=== PATIENT | male | born 1950 | race Caucasian/White ===

== ENCOUNTER 2016-04-18 14:19 | Emergency (ER) ==
[2016-04-18 14:25] VITALS: BP 151/81; TEMP 98.4; BMI 28.6
[2016-04-18] MEDS ORDERED: DECADRON 4 MG/ML SDV IM STA (14:31)
[2016-04-18] MEDS ORDERED: TORADOL IM STA (14:32)
--- NOTE | 2016-04-18 14:53 | DI ---
EXAM: Right foot; PA, lateral, and oblique views HISTORY: Foot pain COMPARISON: Ankle radiographs from same day. FINDINGS: There is no acute fracture or dislocation. Joint spaces and alignment is maintained. Smal l osteophytes project at the region of the first tarsometatarsal joint. Small plantar enthesiophyte is present. Vascular calcifications are noted. Soft tissues are unremarkable. OPINION: No acute osseous abnormality of the foot. 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 Small Achilles enthesiophyte. Atherosclerosis.
--- NOTE | 2016-04-18 14:54 | DI ---
EXAM: Right ankle; AP, lateral, and oblique views HISTORY: Ankle pain COMPARISON: Foot radiograph from same day. FINDINGS: A small well corticated ossicle is present inferior to the lateral malleolus. No evidence of fracture or dislocation is seen. The ankle mortise is congruent. The talar dome has a normal c ontour. No significant soft tissue swelling is present. A small plantar enthesiophyte is present. Vascular calcifications are noted. IMPRESSION: No acute osseous abnormality of the ankle. Well corticated ossicle inferior to the lateral malleolus. Small plantar enthesiophyte. Atherosclerosis.
--- NOTE | 2016-04-18 16:26 | ED.PDOC ---
General ED Provider: Dr. SHEN MCCONNELL Chief Complaint: Foot Pain/Injury Stated Complaint: left foot and ankle injury Time Seen by Physician: 14:20 Mode of Arrival: Walk-In Information Source: Patient Exam Limitations: No limitations Primary Care Provider: GREGORIA THACKER Nursing and Triage Documentation Reviewed and Agree: Yes Musculoskeletal Complaint Exam - Ankle/Foot Complaint/Exam Location of Injury: Reports: Right, Ankle, Foot Mechanism of Injury: Reports: Trauma Onset/Duration: 1 day Symptoms Are: Reports: Still present Onset of Pain: Reports: Immediate Initial Severity: Moderate Current Severity: Moderate Location: Reports: Discrete Character: Reports: Aching, Spasmodic, Stiffness Alleviating: Reports: Rest Aggravating: Reports: Movement Able to Bear Weight: Yes Associated Signs and Symptoms: Denies: Swelling, Redness, Bruising, Fever, Weakness, Numbness, Tingling Gout Risk Factors: Reports: >40 years old Related Surgical History: Reports: None Achilles Tendon Abnormality: No Tenderness: Present: Medial malleolus, Lateral malleolus Differential Diagnosis: Closed Fracture, Gout Review of Systems - Review Of Systems Constitutional: Reports: No symptoms Eyes: Reports: No symptoms Ears, Nose, Mouth, Throat: Reports: No symptoms Respiratory: Reports: No symptoms Cardiac: Reports: No symptoms GI: Reports: No symptoms : Reports: No symptoms Musculoskeletal: Reports: Joint pain Skin: Reports: No symptoms Neurological: Reports: No symptoms Endocrine: Reports: No symptoms Hematologic/Lymphatic: Reports: No symptoms All Other Systems: Reviewed and Negative Past Medical History - Past Medical History Endocrine: Reports: DM 2, Dyslipidemia Cardiovascular: Reports: [place] Respiratory: Reports: Pneumonia, Other (asbestosis) Hematological: Reports: None Gastrointestinal: Reports: GERD Genitourinary: Reports: None Neuro/Psych: Reports: Migraine Musculoskeletal: Reports: None Cancer: Reports: None Other Pertinent Past Medical History: asbestosis - Surgical History General 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 ) - Family History Family History: Reports: Unknown - Social History Smoking Status: Former smoker Hx Substance Use: No Alcohol Screening: Occasionally Physical Exam - Physical Exam Appearance: Well-appearing, No pain distress, Well-nourished Eyes: FERNANDO, EOMI, Conjunctiva clear ENT: Ears normal, Nose normal, Oropharynx normal Respiratory: Airway patent, Breath sounds clear, Breath sounds equal, Respirations nonlabored Cardiovascular: RRR, Pulses normal, No rub, No murmur GI/: Soft, Nontender, No masses, Bowel sounds normal, No Organomegaly Musculoskeletal: Normal strength, ROM intact, No edema, No calf tenderness Skin: Warm, Dry, Normal color Neurological: Sensation intact, Motor intact, Reflexes intact, Cranial nerves intact, Alert, Oriented Psychiatric: Affect appropriate, Mood appropriate Interpretation - Radiology Interpretation Radiology Interpretation By: Radiologist Radiology Results: No acute changes Critical Care Note - Critical Care Note Total Time (mins): 0 Course - Course Orders, Labs, Meds: Lab Review 04/18/16 14:40 Uric Acid 6.4 Orders Category Date Time Status URIC ACID Stat LAB 04/18/16 14:40 Completed Dexamethasone 4 mg/ml Inj [Decadron 4 mg/ml Sdv] MEDS 04/18/16 14:31 Discontinued 8 mg IM ONCE STA Ketorolac Tromethamine [Toradol] MEDS 04/18/16 14:32 Discontinued 60 mg IM ONCE STA ANKLE, RIGHT MIN 3 VIEWS Stat RADS 04/18/16 14:31 Completed FOOT, RIGHT 3 VIEWS Stat RADS 04/18/16 14:31 Completed Medications Discontinued Medications Generic Name Dose Route Start Last Admin Trade Name Freq PRN Reason Stop Dose Admin Dexamethasone Sodium Phosphate 8 mg 04/18/16 14:31 04/18/16 15:09 Decadron 4 Mg/Ml Sdv IM 04/18/16 14:32 8 mg ONCE STA Administration Ketorolac Tromethamine 60 mg 04/18/16 14:32 04/18/16 15:09 Toradol IM 04/18/16 14:33 60 mg ONCE STA Administration Vital Signs: Temp Pulse Resp BP Pulse Ox 04/18/16 14:20 98.4 F 67 20 151/81 H 94 L Departure - Departure Time of Disposition: 16:27 Disposition: HOME SELF-CARE Discharge Problem: Foot pain, right Instructions: Gout (ED), Low Purine Diet (ED) Condition: Good Pt referred to PMD for follow-up: No Additional Instructions: Please call your Family Physician as soon as possible to schedule a follow-up appointment.MRI OF ANKLE SHOULD BE OBTAINED BY YOUR DOCTOR SOON POSSIBLE , THE FOOT WELL Allergies/Adverse Reactions: Allergies No Known Allergies Allergy (Verified 04/18/16 14:26) Home Medications: Ambulatory Orders Aspirin [Aspirin EC] 81 mg PO DAILYWM 05/07/13 Omeprazole [Prilosec] 20 mg PO QDAC 05/07/13 Pravastatin Sodium [Pravachol] 40 mg PO BEDTIME 05/07/13 Amlodipine Besylate 5 mg PO DAILY 07/04/14 Metformin HCl [Glucophage] 500 mg PO BIDWM #60 tablet 07/07/14 Insulin Detemir [Levemir] 10 unit SUBCUT BEDTIME 07/21/14 Disposition Discussed With: Patient
== END 2016-04-18 17:02 | disposition home or self-care (01) ==
LOC: ED 14:19
DX: M79.671 Pain in right foot (principal); M25.571 Pain in right ankle and joints of right foot
CPT/HCPCS: 36415; 84550; 96372; 99282

== ENCOUNTER 2016-04-20 15:54 | Emergency (ER) ==
[2016-04-20 15:55] VITALS: BMI 28.6
[2016-04-20 16:02] VITALS: BP 128/82; TEMP 98.2
[2016-04-20] MEDS ORDERED: ANTIVERT PO STA (16:15)
--- NOTE | 2016-04-20 16:20 | ED.PDOC ---
General ED Provider: Dr. LINDA WALKER JR Chief Complaint: Dizziness Stated Complaint: woke up with dizziness this am--states also had elevated blood sugar at 220 at 0700--has not felt well and has not eaten--blood sugar now down at 88--seen in er this past tuesday for pain rt foot with swelling[ End ]98.2 68 20 96% 128/82 03/23; right foot pain resolved now with red discolration medial and lateral foot purplish at most dependent nontender now able to walk without pain but discoloration preset normal xrays 2/5 now; not tender Time Seen by Physician: 16:16 Mode of Arrival: Walk-In Information Source: Patient Exam Limitations: No limitations Primary Care Provider: GREGORIA THACKER Nursing and Triage Documentation Reviewed and Agree: No Review of Systems - Review Of Systems Constitutional: Reports: Malaise, Weakness Eyes: Reports: No symptoms Ears, Nose, Mouth, Throat: Reports: No symptoms Respiratory: Reports: No symptoms Cardiac: Reports: No symptoms GI: Reports: No symptoms : Reports: No symptoms Musculoskeletal: Reports: No symptoms Skin: Reports: No symptoms Neurological: Reports: Other (dizzy) Endocrine: Reports: No symptoms Hematologic/Lymphatic: Reports: No symptoms All Other Systems: Other Past Medical History - Past Medical History Endocrine: Reports: DM 2, Dyslipidemia Cardiovascular: Reports: [place] Respiratory: Reports: Pneumonia, Other (asbestosis) Hematological: Reports: None Gastrointestinal: Reports: GERD Genitourinary: Reports: None Neuro/Psych: Reports: Migraine Musculoskeletal: Reports: None Cancer: Reports: None Other Pertinent Past Medical History: asbestosis - Surgical History General 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 ) - Family History Family History: Reports: Unknown - Social History Smoking Status: Former smoker Hx Substance Use: No Alcohol Screening: Occasionally Physical Exam - Physical Exam Appearance: Well-appearing Ill-appearing: Mild Pain Distress: Mild Eyes: FERNANDO, EOMI, Conjunctiva clear ENT: Ears normal, Nose normal, Oropharynx normal Neck: Supple Respiratory: Airway patent, Breath sounds clear, Breath sounds equal, Respirations nonlabored Cardiovascular: RRR, Pulses normal, No rub, No murmur GI/: Soft, Nontender, No masses, Bowel sounds normal, No Organomegaly Musculoskeletal: Normal strength, ROM intact, No edema, No calf tenderness Skin: Warm, Dry, Normal color Neurological: Sensation intact, Motor intact, Reflexes intact, Cranial nerves intact, Alert, Oriented Psychiatric: Affect appropriate, Mood appropriate Interpretation - Radiology Interpretation Radiology Interpretation By: Radiologist Radiology Results: Negative Exam Interpreted: CXR Critical Care Note - Critical Care Note Total Time (mins): 10 Course - Course Hematology/Chemistry: 04/20/16 16:30 04/20/16 16:30 Orders, Labs, Meds: Lab Review 04/20/16 16:30 WBC 8.63 RBC 4.58 L Hgb 14.3 Hct 40.4 L MCV 88.2 MCH 31.2 H MCHC 35.4 RDW Coeff of [place] 12.4 Plt Count 252 Immature Gran % (Auto) 0.5 Neut % (Auto) 71.7 Lymph % (Auto) 15.6 [place] % (Auto) 9.5 Eos % (Auto) 2.1 Baso % (Auto) 0.6 Immature Gran # (Auto) 0.0 Neut # 6.2 Lymph # 1.4 [place] # 0.8 Eos # 0.2 Baso # 0.1 D-Dimer 0.46 Sodium 138 Potassium 4.2 Chloride 107 Carbon Dioxide 22 L Anion Gap 13.2 BUN 17 Creatinine 1.05 Estimated GFR (MDRD) 70.00 BUN/Creatinine Ratio 16.19 Glucose 135 H Calcium 9.3 Total Bilirubin 1.83 H AST 23 ALT 20 Alkaline Phosphatase 57 Total Creatine Kinase 121 CK-MB (CK-2) 2.0 CK-MB (CK-2) % 1.43875 Troponin I 0.1730 B-Natriuretic Peptide 186 H Total Protein 6.6 Albumin 4.1 Globulin 2.5 Albumin/Globulin Ratio 1.64 Orders Category Date Time Status EKG-(ED ONLY) Stat CARDIO 04/20/16 16:26 Completed B-TYPE NATRIURETIC PEPTIDE Stat LAB 04/20/16 16:30 Completed CBC W/ AUTO DIFF Stat LAB 04/20/16 16:30 Completed COMPREHENSIVE METABOLIC PANEL Stat LAB 04/20/16 16:30 Completed CREATINE KINASE Stat LAB 04/20/16 16:30 Completed D-DIMER Stat LAB 04/20/16 16:30 Completed TROPONIN I Stat LAB 04/20/16 16:30 Completed Meclizine HCl [Antivert] MEDS 04/20/16 16:15 Discontinued 25 mg PO ONCE STA CHEST, 1V AP ONLY Stat RADS 04/20/16 16:26 Completed Medications Discontinued Medications Generic Name Dose Route Start Last Admin Trade Name [place] PRN Reason Stop Dose Admin Meclizine HCl 25 mg 04/20/16 16:15 04/20/16 16:27 Antivert PO 04/20/16 16:16 25 mg ONCE STA Administration Vital Signs: Temp Pulse Resp BP Pulse Ox 04/20/16 15:55 98.2 F 68 20 128/82 96 Departure - Departure Time of Disposition: 17:58 Disposition: HOME SELF-CARE Discharge Problem: Medication adverse effect, Dizziness Instructions: Vertigo (ED), Lightheadedness (ED) Condition: Good Pt referred to PMD for follow-up: Yes Additional Instructions: return if malaise chest pain swelling or fever follow up PMD as scheduled may use antivert for symptoms Prescriptions: Meclizine HCl [Antivert] 25 mg PO QID PRN #10 tablet PRN Reason: Dizziness Allergies/Adverse Reactions: Allergies No Known Allergies Allergy (Verified 04/20/16 16:02) Home Medications: Ambulatory Orders Aspirin [Aspirin EC] 81 mg PO DAILYWM 05/07/13 Omeprazole [Prilosec] 20 mg PO QDAC 05/07/13 Pravastatin Sodium [Pravachol] 80 mg PO BEDTIME 05/07/13 Amlodipine Besylate 5 mg PO DAILY 07/04/14 Metformin HCl [Glucophage] 500 mg PO BIDWM #60 tablet 07/07/14 Insulin Detemir [Levemir] 10 unit SUBCUT BEDTIME 07/21/14 Meclizine HCl [Antivert] 25 mg PO QID PRN #10 tablet 04/20/16
[2016-04-20 16:36] LABS: BASOPHILS # (AUTO) 0.1 K/uL (0-0.2); BASOPHILS % (AUTO) 0.6 % (0.0-3.0); EOSINOPHILS # (AUTO) 0.2 K/ul (0.0-0.7); EOSINOPHILS % (AUTO) 2.1 % (0.0-7.0); HEMATOCRIT 40.4 % (42.0-52.0); HEMOGLOBIN 14.3 g/dl (14.0-18.0); IMMATURE GRANULOCYTE % (AUTO) 0.5 % (0.0-5.0); LYMPHOCYTES # (AUTO) 1.4 K/uL (0.60-3.4); LYMPHOCYTES % (AUTO) 15.6 (10.0-50.0); MEAN CORPUSCULAR HEMOGLOBIN 31.2 pg (27.0-31.0); MEAN CORPUSCULAR HGB CONC 35.4 (31.8-35.4); MEAN CORPUSCULAR VOLUME 88.2 fl (80.0-94.0); MONOCYTES # (AUTO) 0.8 K/uL (0.4-2.0); MONOCYTES % (AUTO) 9.5 (0-10); NEUTROPHILS # (AUTO) 6.2 K/ul (2.0-6.9); NEUTROPHILS % (AUTO) 71.7; PLATELET COUNT 252 10^3/uL (140-440); RED BLOOD COUNT 4.58 10^6/ul (4.70-6.10); WHITE BLOOD COUNT 8.63 K/ul (4.2-10.2)
--- NOTE | 2016-04-20 17:03 | DI ---
EXAM: Single frontal view of the chest HISTORY: Chest pain. COMPARISON: Chest x-ray 11/20/2015 FINDINGS: Cardiomediastinal silhouette is unremarkable with stable intact sternotomy wires. There i s no pneumothorax or pleural effusion. There is no consolidation, nodule or mass. The osseous stru ctures are unremarkable. IMPRESSION: No acute cardiopulmonary process.
[2016-04-20 17:13] LABS: ALBUMIN 4.1 g/dL (3.4-5.0); ALBUMIN/GLOBULIN RATIO 1.64; ANION GAP 13.2; BILIRUBIN,TOTAL 1.83 mg/dL (0.00-1.20); BUN/CREATININE RATIO 16.19; CALCIUM 9.3 mg/dL (8.2-10.2); CREATININE 1.05 mg/dL (0.60-1.10); POTASSIUM 4.2 mmol/L (3.5-5.1); TOTAL PROTEIN 6.6 g/dL (5.8-8.1); TROPONIN I 0.173 ng/ml (0.0000-0.4000)
== END 2016-04-20 18:05 | disposition home or self-care (01) ==
LOC: ED 15:54
DX: T50.905A Adverse effect of unspecified drugs, medicaments and biological substances, initial encounter (principal); R42 Dizziness and giddiness; R53.1 Weakness; E11.9 Type 2 diabetes mellitus without complications; E78.5 Hyperlipidemia, unspecified; I25.2 Old myocardial infarction; Z79.899 Other long term (current) drug therapy; Z95.1 Presence of aortocoronary bypass graft; Z87.09 Personal history of other diseases of the respiratory system
CPT/HCPCS: 36415; 80053; 82550; 82553; 83880; 84484; 85025; 85379; 93005; 93010; 99283

== ENCOUNTER 2016-05-21 16:41 | Emergency (ER) ==
[2016-05-21 16:41] VITALS: BMI 28.6
[2016-05-21 16:49] VITALS: BP 151/72; TEMP 98.3
--- NOTE | 2016-05-21 17:07 | ED.PDOC ---
General ED Provider: Dr. KAYDEN VALERO Chief Complaint: Foot Pain/Injury Stated Complaint: R foot pain; this AM - similar to prior Dx ofl gout. Normal yesterday. Time Seen by Physician: 17:00 Mode of Arrival: Walk-In Information Source: Patient Exam Limitations: No limitations, Clinical condition Primary Care Provider: GREGORIA THACKER Nursing and Triage Documentation Reviewed and Agree: Yes Review of Systems - Review Of Systems Constitutional: Reports: No symptoms Respiratory: Reports: No symptoms Skin: Reports: No symptoms, Bruising. Denies: Change in color (Except slight erythema and edema R foot lateral and infra lateral maleolus) All Other Systems: Reviewed and Negative Past Medical History - Past Medical History Previously Healthy: Yes Endocrine: Reports: DM 2, Dyslipidemia Cardiovascular: Reports: [place] Respiratory: Reports: Pneumonia, Other (asbestosis) Hematological: Reports: None Gastrointestinal: Reports: GERD Genitourinary: Reports: None Neuro/Psych: Reports: Migraine Musculoskeletal: Reports: None Cancer: Reports: None Other Pertinent Past Medical History: asbestosis - Surgical History General 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 ) - Family History Family History: Reports: Unknown - Social History Smoking Status: Former smoker Hx Substance Use: No Alcohol Screening: Occasionally Physical Exam - Physical Exam Appearance: Well-appearing Pain Distress: Moderate (with weight bearing R foot) Skin: Warm, Dry, Normal color (Except mild erythema and edema R foot; lateral aspect and infra lateral maleolus) Interpretation - Radiology Interpretation Radiology Interpretation By: ED Physician Radiology Results: No acute changes Exam Interpreted: Other (R ankle/R foot) Xray Comments: No apparent fx/dislocation Critical Care Note - Critical Care Note Total Time (mins): 15 Course - Course Hematology/Chemistry: 05/21/16 17:10 05/21/16 17:10 Orders, Labs, Meds: Lab Review 05/21/16 17:10 WBC 8.10 RBC 4.65 L Hgb 14.8 Hct 41.1 L MCV 88.4 MCH 31.8 H MCHC 36.0 H RDW Coeff of [place] 12.3 Plt Count 279 Immature Gran % (Auto) 0.4 Neut % (Auto) 63.1 Lymph % (Auto) 25.6 [place] % (Auto) 8.1 Eos % (Auto) 2.1 Baso % (Auto) 0.7 Immature Gran # (Auto) 0.0 Neut # 5.1 Lymph # 2.1 [place] # 0.7 Eos # 0.2 Baso # 0.1 Sodium 142 Potassium 4.2 Chloride 106 Carbon Dioxide 25 Anion Gap 15.2 BUN 18 Creatinine 1.12 H Estimated GFR (MDRD) 65.00 BUN/Creatinine Ratio 16.07 Glucose 93 Uric Acid 5.8 Calcium 9.6 Total Bilirubin 1.04 AST 19 ALT 17 Alkaline Phosphatase 79 Total Protein 7.3 Albumin 4.3 Globulin 3.0 Albumin/Globulin Ratio 1.43 Orders Category Date Time Status CBC W/ AUTO DIFF Stat LAB 05/21/16 17:10 Completed COMPREHENSIVE METABOLIC PANEL Stat LAB 05/21/16 17:10 Completed URIC ACID Stat LAB 05/21/16 17:10 Completed Ketorolac Tromethamine [Toradol] MEDS 05/21/16 17:57 Discontinued 60 mg IM ONCE STA ANKLE, RIGHT MIN 3 VIEWS Stat RADS 05/21/16 17:06 Completed FOOT, RIGHT 3 VIEWS Stat RADS 05/21/16 17:05 Completed Medications Discontinued Medications Generic Name Dose Route Start Last Admin Trade Name Freq PRN Reason Stop Dose Admin Ketorolac Tromethamine 60 mg 05/21/16 17:57 Toradol IM 05/21/16 17:58 ONCE STA Vital Signs: Temp Pulse Resp BP Pulse Ox 05/21/16 16:43 98.3 F 77 16 151/72 H 97 Departure - Departure Time of Disposition: 17:59 Disposition: HOME SELF-CARE Discharge Problem: Gout Qualifiers: Gout site: foot Gout etiology: idiopathic Laterality: right Instructions: Gout (ED) Condition: Good Pt referred to PMD for follow-up: Yes (call for appointment) Additional Instructions: Take Indocin as prescribed until relief is obtained. May use [place] as needed/ as prescribed for additional pain relief. Follow up with primary care - call for appoinntment. Prescriptions: Hydrocodone Bit/Acetaminophen [[place] 7.5-325] 1 tab PO Q6HR PRN #10 tablet PRN Reason: pain Indomethacin [Indocin] 25 mg PO TIDWM #20 capsule Allergies/Adverse Reactions: Allergies No Known Allergies Allergy (Verified 04/20/16 16:02) Home Medications: Ambulatory Orders Aspirin [Aspirin EC] 81 mg PO DAILYWM 05/07/13 Omeprazole [Prilosec] 20 mg PO QDAC 05/07/13 Pravastatin Sodium [Pravachol] 80 mg PO BEDTIME 05/07/13 Amlodipine Besylate 5 mg PO DAILY 07/04/14 Metformin HCl [Glucophage] 500 mg PO BIDWM #60 tablet 07/07/14 Insulin Detemir [Levemir] 10 unit SUBCUT BEDTIME 07/21/14 Hydrocodone Bit/Acetaminophen [[place] 7.5-325] 1 tab PO Q6HR PRN #10 tablet 05/21 Indomethacin [Indocin] 25 mg PO TIDWM #20 capsule 05/21/16 Disposition Discussed With: Patient
[2016-05-21 17:18] LABS: BASOPHILS # (AUTO) 0.1 K/uL (0-0.2); BASOPHILS % (AUTO) 0.7 % (0.0-3.0); EOSINOPHILS # (AUTO) 0.2 K/ul (0.0-0.7); EOSINOPHILS % (AUTO) 2.1 % (0.0-7.0); HEMATOCRIT 41.1 % (42.0-52.0); HEMOGLOBIN 14.8 g/dl (14.0-18.0); IMMATURE GRANULOCYTE % (AUTO) 0.4 % (0.0-5.0); LYMPHOCYTES # (AUTO) 2.1 K/uL (0.60-3.4); LYMPHOCYTES % (AUTO) 25.6 (10.0-50.0); MEAN CORPUSCULAR HEMOGLOBIN 31.8 pg (27.0-31.0); MEAN CORPUSCULAR VOLUME 88.4 fl (80.0-94.0); MONOCYTES # (AUTO) 0.7 K/uL (0.4-2.0); MONOCYTES % (AUTO) 8.1 (0-10); NEUTROPHILS # (AUTO) 5.1 K/ul (2.0-6.9); NEUTROPHILS % (AUTO) 63.1; PLATELET COUNT 279 10^3/uL (140-440); RED BLOOD COUNT 4.65 10^6/ul (4.70-6.10)
[2016-05-21 17:40] LABS: ALBUMIN 4.3 g/dL (3.4-5.0); ALBUMIN/GLOBULIN RATIO 1.43; ANION GAP 15.2; BILIRUBIN,TOTAL 1.04 mg/dL (0.00-1.20); BUN/CREATININE RATIO 16.07; CALCIUM 9.6 mg/dL (8.2-10.2); CREATININE 1.12 mg/dL (0.60-1.10); POTASSIUM 4.2 mmol/L (3.5-5.1); TOTAL PROTEIN 7.3 g/dL (5.8-8.1); URIC ACID 5.8 mg/dL (2.6-7.2)
[2016-05-21] MEDS ORDERED: TORADOL IM STA (17:57)
--- NOTE | 2016-05-21 18:02 | DI ---
EXAM: Right ankle. Three-view HISTORY: Pain COMPARISON: 04/18/2016 FINDINGS: No acute fracture or dislocation. There is well marginated ossifications inferior to the lateral malleolus may be due to old trauma or ossification center. Ankle mortise is symmetric. Sm all plantar calcaneal spur and mild posterior calcaneal enthesopathy. Atherosclerotic vascular calc ification. No focal soft tissue abnormality. IMPERSSION: 1. No acute fracture or dislocation. 2. Chronic and degenerative changes as described.
--- NOTE | 2016-05-21 18:03 | DI ---
EXAM: Right foot three views HISTORY: Pain COMPARISON: 04/18/2016 FINDINGS: No acute fracture or dislocation. Mild osteoarthritis first MTP joint with joint space n arrowing and osteophyte formation. Mild osteoarthritis of the midfoot. Small plantar calcaneal spu r. Mild posterior calcaneal enthesopathy. Atherosclerotic vascular calcification. IMPERSSION: 1. No acute fracture or dislocation. 2. Chronic and degenerative changes as described.
== END 2016-05-21 18:39 | disposition home or self-care (01) ==
LOC: ED 16:41
DX: M10.071 Idiopathic gout, right ankle and foot (principal); Z79.899 Other long term (current) drug therapy
CPT/HCPCS: 36415; 80053; 84550; 85025; 96372; 99283

== ENCOUNTER 2016-07-06 00:01 | Outpatient (POV) | END 2016-07-06 00:02 | LOC: OUTPT 00:01 | PROVIDERS: ATTEND Otolaryngology | DX: H91.90 Unspecified hearing loss, unspecified ear (principal) | CPT/HCPCS: 92557; 92567 ==

== ENCOUNTER 2016-07-16 16:59 | Emergency (ER) ==
[2016-07-16 17:04] VITALS: BP 145/78; TEMP 98.1; BMI 28.3
--- NOTE | 2016-07-16 18:02 | ED.PDOC ---
General ED Provider: Dr. SHEN MCCONNELL Chief Complaint: Non-specific Complaint Stated Complaint: DIPLOPIA Time Seen by Physician: 17:00 (DIPLOPIA LEFT EYE ONSET SUDDEN 7AM TODAY NO NEURO DEFICIT) Mode of Arrival: Walk-In Information Source: Patient Exam Limitations: No limitations Primary Care Provider: GREGORIA THACKER Nursing and Triage Documentation Reviewed and Agree: Yes EENT Complaint Exam - Eye Complaint/Exam Onset/Duration: 11 HRS Symptoms Are: Still present Timing: Constant Initial Severity: Moderate Current Severity: Moderate Location: Left (NO PAIN) Aggravating: Reports: None Associated Signs and Symptoms: Reports: Vision impairment (DIPLOPIA ). Denies: Photophobia, Clear drainage, Purulent drainage, Fever, Swelling Related History: Denies: Similar episode, Foreign body, Trauma, Glaucoma Eye Surgical History: Reports: None Penetrating Injury Risk Factors: None Globe Rupture Risk Factors: None Acute Glaucoma Risk Factors: None Optic Artery Occlusion Risk Factors: None Visual Acuity Right Eye: 20/30 BOTH EYES WITH OUT CORRECTION WEARS GLASSES Visual Field: Normal Extraocular Movement: Normal Orbit Findings: Normal Globe Findings: Intact Lid Findings: Normal Corneal Findings: Clear Fundi: Normal Differential Diagnoses: Other (CRAINAL NERVE 3 PALSY, BRAIN MASS , DIABETIC RETINO PATH) Review of Systems - Review Of Systems Constitutional: Reports: No symptoms Eyes: Reports: Other (DIPLOPIA ) Ears, Nose, Mouth, Throat: Reports: No symptoms Respiratory: Reports: No symptoms Cardiac: Reports: No symptoms GI: Reports: No symptoms : Reports: No symptoms Musculoskeletal: Reports: No symptoms Skin: Reports: No symptoms Neurological: Reports: No symptoms Endocrine: Reports: No symptoms Hematologic/Lymphatic: Reports: No symptoms All Other Systems: Reviewed and Negative Past Medical History - Past Medical History Previously Healthy: Yes Endocrine: Reports: DM 2, Dyslipidemia Cardiovascular: Reports: [place] Respiratory: Reports: Pneumonia, Other (asbestosis) Hematological: Reports: None Gastrointestinal: Reports: GERD Genitourinary: Reports: None Neuro/Psych: Reports: Migraine Musculoskeletal: Reports: None Cancer: Reports: None Other Pertinent Past Medical History: asbestosis - Surgical History General 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 ) - Family History Family History: Reports: Unknown - Social History Smoking Status: Former smoker Hx Substance Use: No Alcohol Screening: Occasionally Physical Exam - Physical Exam Appearance: Well-appearing, No pain distress, Well-nourished Eyes: FERNANDO, EOMI, Conjunctiva clear ENT: Ears normal, Nose normal, Oropharynx normal Respiratory: Airway patent, Breath sounds clear, Breath sounds equal, Respirations nonlabored Cardiovascular: RRR, Pulses normal, No rub, No murmur GI/: Soft, Nontender, No masses, Bowel sounds normal, No Organomegaly Musculoskeletal: Normal strength, ROM intact, No edema, No calf tenderness Skin: Warm, Dry, Normal color Neurological: Sensation intact, Motor intact, Reflexes intact, Cranial nerves intact, Alert, Oriented Psychiatric: Affect appropriate, Mood appropriate Physician Notification - Case Discussed Physician Notified: jaden Time of Notification: 19:00 Critical Care Note - Critical Care Note Total Time (mins): 0 Course - Course Hematology/Chemistry: 07/16/16 17:48 07/16/16 17:48 Orders, Labs, Meds: Orders Category Date Time Status NPO REMINDER: IMAGING ONCE CARE 07/16/16 17:30 Active CBC W/ AUTO DIFF Stat LAB 07/16/16 17:48 Received COMPREHENSIVE METABOLIC PANEL Stat LAB 07/16/16 17:[address] HEAD W/WO CONTRAST Stat RADS 07/16/16 17:30 Ordered Vital Signs: Temp Pulse Resp BP Pulse Ox 07/16/16 17:00 98.1 F 62 20 145/78 H 93 L Departure - Departure Time of Disposition: 19:00 Disposition: HOME SELF-CARE Discharge Problem: Monocular diplopia of left eye Instructions: Diplopia (ED) Condition: Good Pt referred to PMD for follow-up: No Additional Instructions: FOLLOW UP WITH DR. THACKER ON TUESDAY. CALL FOR A TIME. Allergies/Adverse Reactions: Allergies No Known Allergies Allergy (Verified 07/16/16 17:06) Home Medications: Ambulatory Orders Aspirin [Aspirin EC] 81 mg PO DAILYWM 05/07/13 Omeprazole [Prilosec] 20 mg PO QDAC 05/07/13 Pravastatin Sodium [Pravachol] 80 mg PO BEDTIME 05/07/13 Amlodipine Besylate 5 mg PO DAILY 07/04/14 Metformin HCl [Glucophage] 500 mg PO BIDWM #60 tablet 07/07/14 Insulin Detemir [Levemir] 10 unit SUBCUT BEDTIME 07/21/14 Allopurinol [Zyloprim] 100 mg PO DAILY 07/06/16 Allopurinol 100 mg PO DAILY 07/16/16 Meloxicam 15 mg PO DAILY 07/16/16
[2016-07-16 18:11] LABS: ALBUMIN/GLOBULIN RATIO 1.6; ANION GAP 11.3; BILIRUBIN,TOTAL 0.83 mg/dL (0.00-1.20); BUN/CREATININE RATIO 16.66; CALCIUM 9.3 mg/dL (8.2-10.2); CREATININE 1.08 mg/dL (0.60-1.10); POTASSIUM 4.3 mmol/L (3.5-5.1); TOTAL PROTEIN 6.5 g/dL (5.8-8.1)
[2016-07-16 18:19] LABS: BASOPHILS % (AUTO) 0.5 % (0.0-3.0); EOSINOPHILS # (AUTO) 0.2 K/ul (0.0-0.7); HEMATOCRIT 39.3 % (42.0-52.0); HEMOGLOBIN 13.9 g/dl (14.0-18.0); IMMATURE GRANULOCYTE % (AUTO) 0.2 % (0.0-5.0); LYMPHOCYTES # (AUTO) 1.3 K/uL (0.60-3.4); LYMPHOCYTES % (AUTO) 22.4 (10.0-50.0); MEAN CORPUSCULAR HEMOGLOBIN 31.6 pg (27.0-31.0); MEAN CORPUSCULAR HGB CONC 35.4 (31.8-35.4); MEAN CORPUSCULAR VOLUME 89.3 fl (80.0-94.0); MONOCYTES # (AUTO) 0.5 K/uL (0.4-2.0); MONOCYTES % (AUTO) 8.8 (0-10); NEUTROPHILS # (AUTO) 3.9 K/ul (2.0-6.9); NEUTROPHILS % (AUTO) 65.1; PLATELET COUNT 244 10^3/uL (140-440); WHITE BLOOD COUNT 5.93 K/ul (4.2-10.2)
--- NOTE | 2016-07-16 21:08 | CT ---
EXAM: CT scan brain with without contrast HISTORY: Blurred vision COMPARISON: CT scan brain 08/20/2013 FINDINGS: Contiguous axial images obtained from the skull base to the convexities both before and a fter uneventful administration of intravenous contrast utilizing 5-mm collimation. Sagittal and cor onal reconstructions were imaged and reviewed. The ventricles and CSF spaces are prominent by with a ge appropriate atrophy. There is periventricular hypodensity noted compatible with chronic microvas cular disease.. Postcontrast images reveal normal enhancement without evidence of abnormal enhancem ent.. Atherosclerotic changes are seen involving the bilateral vertebral and bilateral cavernous in ternal carotid arteries. The visualized paranasal sinuses and mastoid air cells are clear. IMPRESSION: No acute intracranial findings
--- NOTE | 2016-07-16 21:58 | CT ---
EXAM: CT orbits without and with intravenous contrast 07/16/2016. Multi planar reformatted images obtained. HISTORY: Diplopia COMPARISON: 08/22/2013, 07/16/2016 FINDINGS: No gross soft tissue abnormality. The intraorbital contents appear intact and symmetric. The The orbits, zygoma, nasal bones, maxilla and mandible appear intact. There is no evidence of acute fracture. Normal pneumatization of the paranasal sinuses. The mastoid air cells appear normally aerated. Deviation of the osseous nasal septum to the left. Right rosalina bullosa. No specific finding identified to account for reported symptoms. IMPRESSION: 1. No acute osseous abnormality facial bones. 2. The intraorbital contents appear grossly intact and symmetric. 3. No pathologic postcontrast enhancement.
== END 2016-07-16 22:42 | disposition home or self-care (01) ==
LOC: ED 16:59
DX: H53.2 Diplopia (principal); E11.9 Type 2 diabetes mellitus without complications; E78.5 Hyperlipidemia, unspecified; I25.2 Old myocardial infarction; Z95.1 Presence of aortocoronary bypass graft; Z79.899 Other long term (current) drug therapy; Z86.69 Personal history of other diseases of the nervous system and sense organs
CPT/HCPCS: 36415; 80053; 85025; 99283

== ENCOUNTER 2016-09-05 15:53 | Emergency (ER) ==
[2016-09-05 15:58] VITALS: BP 160/74; TEMP 98.6; BMI 28.6
[2016-09-05] MEDS ORDERED: DECADRON 4 MG/ML SDV IM STA (16:08)
--- NOTE | 2016-09-05 16:11 | ED.PDOC ---
General ED Provider: Dr. GRACIELA SANTOS Chief Complaint: Extremity Pain/Injury Stated Complaint: Started since yesterday, he feels numb and tngling in left upper extremity, left lower extremity, and left side of the face. no weakness, no slurry speach. says that hewas hurting in his lower back since last week, he has f/u with ortho. Time Seen by Physician: 16:09 Mode of Arrival: Walk-In Information Source: Patient Primary Care Provider: GREGORIA THACKER Nursing and Triage Documentation Reviewed and Agree: Yes Neurological Complaint Exam - Weakness Complaint/Exam Onset: Gradual Symptoms Are: Still present Episodes Lasting: Hours Initial Severity: Mild Current Severity: Mild Character: Reports: Unable to describe (TINGLING IN LEFT UPPER EXTREMITY, LEFT LEG, LEFT SIDE OF THE FACE,) Aggravating: Reports: None Alleviating: Reports: None Cardiac Risk Factors: Reports: Hypertension Related Surgical History: Reports: None, CABG JVD Present: No Carotid Bruit Present: No Rectal Heme Positive: No Nystagmus Present: No Gag Reflex Present: Yes Focal Weakness: Present: None Focal Sensory Loss: Present: None Gait: Normal [id number]: Normal Findings Babinski Sign: Negative Right, Negative Left Differential Diagnoses: Other (cva, radiculopathy, dm neuropathy.) Quality Indicators for Cardiac Chest Pain: EKG in 10min. Review of Systems - Review Of Systems Constitutional: Reports: No symptoms Eyes: Reports: No symptoms Ears, Nose, Mouth, Throat: Reports: No symptoms Respiratory: Reports: No symptoms Cardiac: Reports: No symptoms GI: Reports: No symptoms : Reports: No symptoms Musculoskeletal: Reports: No symptoms Skin: Reports: No symptoms Neurological: Reports: Weakness Endocrine: Reports: No symptoms Hematologic/Lymphatic: Reports: No symptoms All Other Systems: Reviewed and Negative Past Medical History - Past Medical History Previously Healthy: Yes Endocrine: Reports: DM 2, Dyslipidemia Cardiovascular: Reports: [place] Respiratory: Reports: Pneumonia, Other (asbestosis) Hematological: Reports: None Gastrointestinal: Reports: GERD Genitourinary: Reports: None Neuro/Psych: Reports: Migraine Musculoskeletal: Reports: None Cancer: Reports: None Other Pertinent Past Medical History: asbestosis - Surgical History General 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 ) - Family History Family History: Reports: Unknown - Social History Smoking Status: Former smoker Hx Substance Use: No Alcohol Screening: Occasionally Physical Exam - Physical Exam Appearance: Well-appearing, No pain distress, Well-nourished Eyes: FERNANDO, EOMI, Conjunctiva clear ENT: Ears normal, Nose normal, Oropharynx normal Respiratory: Airway patent, Breath sounds clear, Breath sounds equal, Respirations nonlabored Cardiovascular: RRR, Pulses normal, No rub, No murmur GI/: Soft, Nontender, No masses, Bowel sounds normal, No Organomegaly Musculoskeletal: Normal strength, ROM intact, No edema, No calf tenderness Skin: Warm, Dry, Normal color Neurological: Sensation intact, Motor intact, Reflexes intact, Cranial nerves intact, Alert, Oriented Psychiatric: Affect appropriate, Mood appropriate Interpretation - Radiology Interpretation Radiology Interpretation By: Radiologist Radiology Results: Positive (chronic sub dural hematoma.) Exam Interpreted: CT Scan Critical Care Note - Critical Care Note Total Time (mins): 0 Course - Course Hematology/Chemistry: 09/05/16 16:10 09/05/16 16:10 Orders, Labs, Meds: Lab Review 09/05/16 16:10 WBC 9.07 RBC 4.54 L Hgb 14.1 Hct 40.3 L MCV 88.8 MCH 31.1 H MCHC 35.0 RDW Coeff of [place] 13.0 Plt Count 239 Immature Gran % (Auto) 0.6 Neut % (Auto) 76.2 Lymph % (Auto) 13.5 [place] % (Auto) 8.4 Eos % (Auto) 1.0 Baso % (Auto) 0.3 Immature Gran # (Auto) 0.1 Neut # 6.9 Lymph # 1.2 [place] # 0.8 Eos # 0.1 Baso # 0.0 Sodium 139 Potassium 4.4 Chloride 109 H Carbon Dioxide 19 L Anion Gap 15.4 BUN 26 H Creatinine 1.32 H Estimated GFR (MDRD) 54.00 BUN/Creatinine Ratio 19.69 Glucose 195 H Calcium 9.5 Total Bilirubin 1.66 H AST 21 ALT 17 Alkaline Phosphatase 63 Total Creatine Kinase 169 CK-MB (CK-2) 2.5 CK-MB (CK-2) % 1.05147 Troponin I 0.0380 Total Protein 6.8 Albumin 4.1 Globulin 2.7 Albumin/Globulin Ratio 1.52 Orders Category Date Time Status EKG-(ED ONLY) Stat CARDIO 09/05/16 16:08 Completed CBC W/ AUTO DIFF Stat LAB 09/05/16 16:10 Completed COMPREHENSIVE METABOLIC PANEL Stat LAB 09/05/16 16:10 Completed CREATINE KINASE Stat LAB 09/05/16 16:10 Completed TROPONIN I Stat LAB 09/05/16 16:10 Completed Dexamethasone 4 mg/ml Inj [Decadron 4 mg/ml Sdv] MEDS 09/05/16 16:08 Discontinued 4 mg IM ONCE STA CT HEAD W/O CONTRAST Stat RADS 09/05/16 16:08 Completed Medications Discontinued Medications Generic Name Dose Route Start Last Admin Trade Name Iglesia PRN Reason Stop Dose Admin Dexamethasone Sodium Phosphate 4 mg 09/05/16 16:08 09/05/16 16:27 Decadron 4 Mg/Ml Sdv IM 09/05/16 16:09 4 mg ONCE STA Administration Vital Signs: Temp Pulse Resp BP Pulse Ox 09/05/16 15:55 98.6 F 81 18 160/74 H 95 Departure - Departure Time of Disposition: 17:07 Disposition: HOME SELF-CARE Discharge Problem: Weakness Instructions: Weakness (ED), Lumbar Radiculopathy (ED) Condition: Stable Pt referred to PMD for follow-up: Yes Additional Instructions: needs f/u with PMD needs further evaluation. Allergies/Adverse Reactions: Allergies No Known Allergies Allergy (Verified 09/05/16 15:58) Home Medications: Ambulatory Orders Aspirin [Aspirin EC] 81 mg PO DAILYWM 05/07/13 Omeprazole [Prilosec] 20 mg PO QDAC 05/07/13 Pravastatin Sodium [Pravachol] 80 mg PO BEDTIME 05/07/13 Amlodipine Besylate 5 mg PO DAILY 07/04/14 Metformin HCl [Glucophage] 500 mg PO BIDWM #60 tablet 07/07/14 Insulin Detemir [Levemir] 10 unit SUBCUT BEDTIME 07/21/14 Allopurinol 100 mg PO DAILY 07/16/16 Meloxicam 15 mg PO DAILY 07/16/16 Disposition Discussed With: Patient
[2016-09-05 16:20] LABS: BASOPHILS % (AUTO) 0.3 % (0.0-3.0); EOSINOPHILS # (AUTO) 0.1 K/ul (0.0-0.7); HEMATOCRIT 40.3 % (42.0-52.0); HEMOGLOBIN 14.1 g/dl (14.0-18.0); IMMATURE GRANULOCYTE % (AUTO) 0.6 % (0.0-5.0); LYMPHOCYTES # (AUTO) 1.2 K/uL (0.60-3.4); LYMPHOCYTES % (AUTO) 13.5 (10.0-50.0); MEAN CORPUSCULAR HEMOGLOBIN 31.1 pg (27.0-31.0); MEAN CORPUSCULAR VOLUME 88.8 fl (80.0-94.0); MONOCYTES # (AUTO) 0.8 K/uL (0.4-2.0); MONOCYTES % (AUTO) 8.4 (0-10); NEUTROPHILS # (AUTO) 6.9 K/ul (2.0-6.9); NEUTROPHILS % (AUTO) 76.2; PLATELET COUNT 239 10^3/uL (140-440); RED BLOOD COUNT 4.54 10^6/ul (4.70-6.10); WHITE BLOOD COUNT 9.07 K/ul (4.2-10.2)
--- NOTE | 2016-09-05 16:42 | CT ---
EXAM: CT of the head without contrast History: Left-sided weakness. Comparison: Head CT 07/16/2016 Technique: Multiplanar CT images through the head were obtained without the administration of IV co ntrast Findings: The visualized paranasal sinuses and mastoid air cells are clear in general. No acute kimberly varial abnormalities. Intracranially there is stable prominent bifrontal CSF subdural spaces measuring up to 9 mm on the t he the right and 9 mm on the left. No midline shift. No hydrocephalous. No acute intracranial hemo rrhage. Impression: 1. No acute intracranial hemorrhage. 2. Stable prominent bifrontal CSF containing subdural spaces could represent chronic subdural hemat omas, cystic hygromas or asymmetric frontal atrophy.
[2016-09-05 16:56] LABS: ALBUMIN 4.1 g/dL (3.4-5.0); ALBUMIN/GLOBULIN RATIO 1.52; ANION GAP 15.4; BILIRUBIN,TOTAL 1.66 mg/dL (0.00-1.20); BUN/CREATININE RATIO 19.69; CALCIUM 9.5 mg/dL (8.2-10.2); CREATININE 1.32 mg/dL (0.60-1.10); POTASSIUM 4.4 mmol/L (3.5-5.1); TOTAL PROTEIN 6.8 g/dL (5.8-8.1); TROPONIN I 0.038 ng/ml (0.0000-0.4000)
[2016-09-05 16:58] LABS: CREATINE KINASE MB 2.5 ng/ml (0.0-3.6)
== END 2016-09-05 17:14 | disposition home or self-care (01) ==
LOC: ED 15:53
DX: R53.1 Weakness (principal); R20.0 Anesthesia of skin; M54.5 Low back pain; I10 Essential (primary) hypertension; E11.9 Type 2 diabetes mellitus without complications; E78.5 Hyperlipidemia, unspecified; I25.2 Old myocardial infarction; Z95.1 Presence of aortocoronary bypass graft; Z79.899 Other long term (current) drug therapy
CPT/HCPCS: 36415; 80053; 82550; 82553; 84484; 85025; 93005; 93010; 96372; 99283

== ENCOUNTER 2016-11-26 14:42 | Emergency (ER) | payer OTHER ==
[2016-11-26 14:51] VITALS: BP 131/70; TEMP 97.7; BMI 26.9
[2016-11-26 15:28] LABS: BASOPHILS % (AUTO) 0.7 % (0.0-3.0); EOSINOPHILS # (AUTO) 0.1 K/ul (0.0-0.7); EOSINOPHILS % (AUTO) 1.5 % (0.0-7.0); HEMATOCRIT 38.6 % (42.0-52.0); HEMOGLOBIN 14.2 g/dl (14.0-18.0); LYMPHOCYTES # (AUTO) 1.2 K/uL (0.60-3.4); LYMPHOCYTES % (AUTO) 20.3 (10.0-50.0); MEAN CORPUSCULAR HEMOGLOBIN 32.7 pg (27.0-31.0); MEAN CORPUSCULAR HGB CONC 36.8 (31.8-35.4); MEAN CORPUSCULAR VOLUME 88.9 fl (80.0-94.0); MONOCYTES # (AUTO) 0.5 K/uL (0.4-2.0); MONOCYTES % (AUTO) 8.8 (0-10); NEUTROPHILS # (AUTO) 4.1 K/ul (2.0-6.9); NEUTROPHILS % (AUTO) 67.7; PLATELET COUNT 239 10^3/uL (140-440); RED BLOOD COUNT 4.34 10^6/ul (4.70-6.10); WHITE BLOOD COUNT 6.02 K/ul (4.2-10.2)
[2016-11-26] MEDS ORDERED: SOLU-MEDROL 125 MG IVP STA ×2 (15:31→17:31)
[2016-11-26] MEDS ORDERED: DUONEB NEB STA (15:32)
[2016-11-26] MEDS ORDERED: SODIUM CHLORIDE 500 ML IV STA (15:34)
[2016-11-26 16:00] LABS: ALANINE AMINOTRANSFERASE 17 U/L (12-78); ALBUMIN 4.1 g/dL (3.4-5.0); ALBUMIN/GLOBULIN RATIO 1.52; ALKALINE PHOSPHATASE 67 U/L (56-119); ANION GAP 17.8; ASPARTATE AMINO TRANSFERASE 21 U/L (15-37); BILIRUBIN,TOTAL 1.39 mg/dL (0.00-1.20); BLOOD UREA NITROGEN 17 mg/dL (7-18); BUN/CREATININE RATIO 16.34; CARBON DIOXIDE 18 mmol/L (23-31); CHLORIDE 108 mmol/L (98-107); CREATINE KINASE 117 U/L; CREATININE 1.04 mg/dL (0.60-1.10); GLUCOSE 140 mg/dL (82-115); POTASSIUM 3.8 mmol/L (3.5-5.1); SODIUM 140 mmol/L (136-145); TOTAL PROTEIN 6.8 g/dL (5.8-8.1)
--- NOTE | 2016-11-26 17:25 | CT ---
EXAM: CT angiogram of the chest with contrast HISTORY: Shortness of air, elevated D-dimer TECHNIQUE: Imaging of the chest was performed following the intravenous administration of contrast. 3 mm thin axial images and coronal and sagittal reconstructions and rotated 3-D reconstructions were provided for interpretation. Comparison CT scan of the chest with contrast dated 07/21/2014. FINDINGS: No definite filling defects are identified within the branches of the pulmonary arteries. The central pulmonary arteries are normal. The heart is normal size. No mediastinal masses are see n. Lungs are clear. There is no pleural effusion. There has been previous cholecystectomy. There is a cyst seen within the left lobe of the liver. No lytic or blastic lesions are seen within the osse ous structures. IMPRESSION: There is no acute pulmonary embolism.
--- NOTE | 2016-11-26 17:30 | ED.PDOC ---
General ED Provider: Dr. SHEN MCCONNELL Chief Complaint: Respiratory Complaint Stated Complaint: COUGH, WHEEZ Time Seen by Physician: 15:00 (left leg and lower chest wall pain chronic pain from leg to chest is chronic) Mode of Arrival: Walk-In Information Source: Patient Exam Limitations: No limitations Primary Care Provider: GREGORIA THACKER Nursing and Triage Documentation Reviewed and Agree: Yes (jessenia was at bedside ) Respiratory Complaint Exam - Respiratory Complaint/Exam Onset/Duration: 2 DAYS Symptoms Are: Resolved Timing: Intermittent Initial Severity: Mild Current Severity: None Location: Throat, Chest Character: Reports: Non-productive cough Aggravating: Reports: None Alleviating: Reports: Spontaneous resolution Associated Signs and Symptoms: Reports: Chills, URI, Nasal congestion. Denies: Rapid breathing, Dyspnea, Fever, Chest pain, Pleuritic chest pain, Wheezing, Hemoptysis, Dizziness, Calf pain, Calf swelling, Edema, Hoarseness, Sinus discomfort, Vomiting, Sore throat, Weight loss, Decreased oral intake, Increased thirst, Increased appetite, Increased urination Related History: Reports: Similar episode Related Surgical History: Reports: None Pulmonary Embolism Risk Factors: None Cardiac Risk Factors: Reports: Diabetes, Hypertension Pseudomonas Risk Factors: Reports: Chronic Lung Disease Tuberculosis Risk Factors: Reports: None Status Asthmaticus Risk Factors: Reports: None Home Oxygen Use: No Recent Stress Test: No Recent Echo/LV Function: No Current Antibiotic Use: No Current Asthma Medication Use: No Respiratory Distress: None Inadequate Respiratory Effort: No Dysphagia Present: No Stridor Present: No JVD Present: No Accessory Muscle Use: No Retractions: Not Present Diminished Breath Sounds: Yes Sinus Tenderness: None Grunting Respirations: No Kussmaul Respirations: No Differential Diagnoses: Pneumonia, Pulmonary Embolism, Bronchitis, Lower Resp. Infection Review of Systems - Review Of Systems Constitutional: Reports: Malaise Eyes: Reports: No symptoms Ears, Nose, Mouth, Throat: Reports: No symptoms Respiratory: Reports: Cough, Short of air, Wheezing Cardiac: Reports: Chest pain (which is from left leg to chest this pain si chronic) GI: Reports: No symptoms : Reports: No symptoms Musculoskeletal: Reports: Other (left leg pain) Skin: Reports: No symptoms Neurological: Reports: No symptoms Endocrine: Reports: No symptoms Hematologic/Lymphatic: Reports: No symptoms All Other Systems: Reviewed and Negative Past Medical History - Past Medical History Previously Healthy: Yes Endocrine: Reports: DM 2, Dyslipidemia Cardiovascular: Reports: [place] Respiratory: Reports: Pneumonia, Other (asbestosis) Hematological: Reports: None Gastrointestinal: Reports: GERD Genitourinary: Reports: None Neuro/Psych: Reports: Migraine Musculoskeletal: Reports: None Cancer: Reports: None Other Pertinent Past Medical History: asbestosis - Surgical History General 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 ) - Family History Family History: Reports: Unknown - Social History Smoking Status: Former smoker Hx Substance Use: No Alcohol Screening: Occasionally Physical Exam - Physical Exam Appearance: Well-appearing, No pain distress, Well-nourished Eyes: FERNANDO, EOMI, Conjunctiva clear ENT: Ears normal, Nose normal, Oropharynx normal Respiratory: Airway patent, Breath sounds clear, Breath sounds equal, Respirations nonlabored Cardiovascular: RRR, Pulses normal, No rub, No murmur GI/: Soft, Nontender, No masses, Bowel sounds normal, No Organomegaly Musculoskeletal: Normal strength, ROM intact, No edema, No calf tenderness Skin: Warm, Dry, Normal color Neurological: Sensation intact, Motor intact, Reflexes intact, Cranial nerves intact, Alert, Oriented Psychiatric: Affect appropriate, Mood appropriate Interpretation - Radiology Interpretation Radiology Interpretation By: Radiologist Radiology Results: No acute changes Critical Care Note - Critical Care Note Total Time (mins): 0 Course - Course Hematology/Chemistry: 11/26/16 15:20 11/26/16 15:20 Orders, Labs, Meds: Lab Review 11/26/16 11/26/16 11/26/16 15:20 15:20 15:20 WBC 6.02 RBC 4.34 L Hgb 14.2 Hct 38.6 L MCV 88.9 MCH 32.7 H MCHC 36.8 H RDW Coeff of [place] 12.1 Plt Count 239 Immature Gran % (Auto) 1.0 Neut % (Auto) 67.7 Lymph % (Auto) 20.3 [place] % (Auto) 8.8 Eos % (Auto) 1.5 Baso % (Auto) 0.7 Immature Gran # (Auto) 0.1 Neut # 4.1 Lymph # 1.2 [place] # 0.5 Eos # 0.1 Baso # 0.0 D-Dimer (Manual) 433.58 Sodium 140 Potassium 3.8 Chloride 108 H Carbon Dioxide 18 L Anion Gap 17.8 BUN 17 Creatinine 1.04 Estimated GFR (MDRD) 71.00 BUN/Creatinine Ratio 16.34 Glucose 140 H Calcium 10.0 Total Bilirubin 1.39 H AST 21 ALT 17 Alkaline Phosphatase 67 Total Creatine Kinase 117 CK-MB (CK-2) 1.0 CK-MB (CK-2) % 0.36765 Troponin I < 0.0100 Total Protein 6.8 Albumin 4.1 Globulin 2.7 Albumin/Globulin Ratio 1.52 Orders Category Date Time Status ABG DRAW REQUEST Stat CARDIO 11/26/16 15:31 Ordered EKG-(ED ONLY) Stat CARDIO 11/26/16 15:03 Completed NEBULIZER TREATMENT Stat CARDIO 11/26/16 15:32 Completed NPO REMINDER: IMAGING ONCE CARE 11/26/16 16:29 Completed ED IV/MEDIPORT/POWERPORT .ONCE EMERGENCY 11/26/16 15:33 Active ABG Stat LAB 11/26/16 15:31 Ordered CBC W/ AUTO DIFF Stat LAB 11/26/16 15:20 Completed COMPREHENSIVE METABOLIC PANEL Stat LAB 11/26/16 15:20 Completed CREATINE KINASE Stat LAB 11/26/16 15:20 Completed D-DIMER Stat LAB 11/26/16 15:20 Completed TROPONIN I Stat LAB 11/26/16 15:20 Completed 0.9 % Sodium Chloride [Saline Flush] MEDS 11/26/16 15:33 Active 1 syr IVF PRN PRN Azithromycin [Zithromax] MEDS 11/26/16 17:32 Stat 500 mg PO ONCE STA Ceftriaxone Sodium [Rocephin] 1 gm MEDS 11/26/16 17:31 Ordered 0.9 % Sodium Chloride [Sodium Chloride] 50 ml IV ONCE Ipratropium/Albuterol Neb [Duoneb] MEDS 11/26/16 15:32 Discontinued 1 vial NEB ONCE STA Methylprednisolone Sod Succ/Pf [Solu-Medrol 125 mg] MEDS 11/26/16 15:31 Discontinued 125 mg IVP ONCE STA Methylprednisolone Sod Succ/Pf [Solu-Medrol 125 mg] MEDS 11/26/16 17:31 Stat 150 mg IVP ONCE STA Sodium Chloride 0.9% [Sodium Chloride] 500 ml MEDS 11/26/16 15:[address] CHEST PE PROTOCOL Stat RADS 11/26/16 16:28 Completed Medications Generic Name Dose Route Start Last Admin Trade Name Freq PRN Reason Stop Dose Admin Ceftriaxone Sodium 1 gm/ 50 mls @ 75 mls/hr 11/26/16 17:31 Sodium Chloride IV 11/26/16 18:10 ONCE STA Sodium Chloride 1 syr 11/26/16 15:33 11/26/16 16:50 Saline Flush IVF 1 syr PRN PRN Administration To flush IV Discontinued Medications Generic Name Dose Route Start Last Admin Trade Name Iglesia PRN Reason Stop Dose Admin Albuterol/Ipratropium 1 vial 11/26/16 15:32 11/26/16 15:50 Duoneb NEB 11/26/16 15:33 1 vial ONCE STA Administration Azithromycin 500 mg 11/26/16 17:32 Zithromax PO 11/26/16 17:33 ONCE STA Sodium Chloride 500 mls @ 500 mls/hr 11/26/16 15:34 11/26/16 16:48 Sodium Chloride IV 11/26/16 16:33 500 mls/hr BOLUS STA Administration Methylprednisolone Sodium Succinate 125 mg 11/26/16 15:31 11/26/16 16:48 Solu-Medrol 125 Mg IVP 11/26/16 15:32 125 mg ONCE STA Administration Methylprednisolone Sodium Succinate 150 mg 11/26/16 17:31 Solu-Medrol 125 Mg IVP 11/26/16 17:32 ONCE STA Vital Signs: Temp Pulse Resp BP Pulse Ox 11/26/16 14:46 97.7 F 81 22 131/70 99 Departure - Departure Time of Disposition: 17:30 Disposition: HOME SELF-CARE Discharge Problem: COPD (chronic obstructive pulmonary disease) Qualifiers: COPD type: unspecified COPD Qualified Code(s): J44.9 - Chronic obstructive pulmonary disease, unspecified Instructions: COPD (Chronic Obstructive Pulmonary Disease) (ED) Condition: Good Pt referred to PMD for follow-up: Yes Additional Instructions: Please call your Family Physician as soon as possible to schedule a follow-up appointment. Allergies/Adverse Reactions: Allergies No Known Allergies Allergy (Verified 11/26/16 14:51) Home Medications: Ambulatory Orders Aspirin [Aspirin EC] 81 mg PO DAILYWM 05/07/13 Omeprazole [Prilosec] 20 mg PO QDAC 05/07/13 Pravastatin Sodium [Pravachol] 80 mg PO BEDTIME 05/07/13 Amlodipine Besylate 5 mg PO DAILY 07/04/14 Metformin HCl [Glucophage] 500 mg PO BIDWM #60 tablet 07/07/14 Insulin Detemir [Levemir] 10 unit SUBCUT BEDTIME 07/21/14 Allopurinol 100 mg PO DAILY 07/16/16 Meloxicam 15 mg PO DAILY 07/16/16
[2016-11-26] MEDS ORDERED: ROCEPHIN 1 GM in SODIUM CHLORIDE 50 ML IV STA (17:31)
[2016-11-26] MEDS ORDERED: ZITHROMAX PO STA (17:32)
[2016-11-26] MEDS ORDERED: ROCEPHIN ONE (17:49)
== END 2016-11-26 19:11 | disposition home or self-care (01) ==
LOC: ED 14:42
DX: J44.9 Chronic obstructive pulmonary disease, unspecified (principal); M79.605 Pain in left leg; I10 Essential (primary) hypertension; E11.9 Type 2 diabetes mellitus without complications; E78.5 Hyperlipidemia, unspecified; R06.02 Shortness of breath; J61 Pneumoconiosis due to asbestos and other mineral fibers; I25.2 Old myocardial infarction; K21.9 Gastro-esophageal reflux disease without esophagitis; Z95.1 Presence of aortocoronary bypass graft; Z79.899 Other long term (current) drug therapy
CPT/HCPCS: 36415; 80053; 82550; 82553; 84484; 85025; 85379; 93005; 93010; 94640; 96365; 96375; 99283

== ENCOUNTER 2016-12-03 13:48 | Emergency (ER) ==
[2016-12-03 13:48] VITALS: BMI 26.9
[2016-12-03 13:55] VITALS: BP 107/73; TEMP 97.5
[2016-12-03 14:39] LABS: BASOPHILS % (AUTO) 0.4 % (0.0-3.0); EOSINOPHILS # (AUTO) 0.1 K/ul (0.0-0.7); EOSINOPHILS % (AUTO) 0.8 % (0.0-7.0); HEMATOCRIT 39.2 % (42.0-52.0); HEMOGLOBIN 14.2 g/dl (14.0-18.0); IMMATURE GRANULOCYTE % (AUTO) 3.3 % (0.0-5.0); LYMPHOCYTES # (AUTO) 1.3 K/uL (0.60-3.4); LYMPHOCYTES % (AUTO) 15.3 (10.0-50.0); MEAN CORPUSCULAR HEMOGLOBIN 32.2 pg (27.0-31.0); MEAN CORPUSCULAR HGB CONC 36.2 (31.8-35.4); MEAN CORPUSCULAR VOLUME 88.9 fl (80.0-94.0); MONOCYTES # (AUTO) 0.8 K/uL (0.4-2.0); MONOCYTES % (AUTO) 9.4 (0-10); NEUTROPHILS % (AUTO) 70.8; PLATELET COUNT 240 10^3/uL (140-440); RED BLOOD COUNT 4.41 10^6/ul (4.70-6.10); WHITE BLOOD COUNT 8.41 K/ul (4.2-10.2)
--- NOTE | 2016-12-03 15:48 | CT ---
EXAM: CTA of the chest. History: Short of breath Comparison: CT chest 11/26/2016 Technique: Multiplanar CT images through the thorax were obtained without the administration of IV c ontrast. MIP images and 3-D reconstructions also acquired Findings: Heart size is within normal limits. The aorta is not well opacified with contrast. Coron jung calcifications. No pulmonary arterial filling defects. No pathologically enlarged thoracic lymp h nodes. No consolidated pneumonia. No appreciable pleural fluid and no pneumothorax. No suspicious lung mas ses or lung nodules. Within the visualized upper abdomen, stable cyst within the left hepatic lobe. Status post cholecyst ectomy. There is peripancreatic edema. No acute osseous abnormalities. Sternotomy wires Impression: 1. No pulmonary embolism and no evidence for pneumonia. 2. Acute pancreatitis. 3. Coronary artery disease
[2016-12-03 15:53] LABS: ALBUMIN 3.2 g/dL (3.4-5.0); ALBUMIN/GLOBULIN RATIO 1.19; ANION GAP 14.8; BILIRUBIN,TOTAL 1.17 mg/dL (0.00-1.20); BUN/CREATININE RATIO 24.27; CALCIUM 8.6 mg/dL (8.2-10.2); CREATININE 1.03 mg/dL (0.60-1.10); POTASSIUM 3.8 mmol/L (3.5-5.1); TOTAL PROTEIN 5.9 g/dL (5.8-8.1)
[2016-12-03 15:59] LABS: TROPONIN I 6.679 ng/ml (0.0000-0.4000)
[2016-12-03 16:16] LABS: AMYLASE 73 U/L (25-115); LIPASE 184 U/L (8-78)
--- NOTE | 2016-12-03 16:43 | ED.PDOC ---
General ED Provider: Dr. SHEN MCCONNELL Chief Complaint: Shortness of Air Stated Complaint: short of air Time Seen by Physician: 13:48 Mode of Arrival: Walk-In Information Source: Patient Exam Limitations: No limitations Primary Care Provider: GREGORIA THACKER Nursing and Triage Documentation Reviewed and Agree: Yes Respiratory Complaint Exam - Shortness of Air Complaint/Exam Onset/Duration: 1 week Symptoms Are: Still present Timing: Constant Initial Severity: Mild Current Severity: Mild Character: Reports: Dyspnea at rest, Dyspnea on exertion, Orthopnea Aggravating: Reports: None Alleviating: Reports: Spontaneous resolution Associated Signs and Symptoms: Reports: Cough. Denies: Wheezing, Chest pain with cough, Chest pain, Fever, Chills, Diaphoresis, Nasal congestion, Dizziness , Calf pain, Calf swelling, Edema, Rapid breathing, Labored breathing, Decreased intake Related History: Reports: Similar episode History of Healthcare-Acquired Pneumonia: No Pulmonary Embolism Risk Factors: Reports: Bedrest Cardiac Risk Factors: Reports: None Pseudomonas Risk Factors: Reports: None Tuberculosis Risk Factors: Reports: None Home Oxygen Use: No Recent Stress Test: No Recent Echo/LV Function: No Respiratory Distress: None Stridor Present: No Tracheal Deviation: No Subcutaneous Emphysema: No Accessory Muscle Use: No Retractions: Not Present Diminished Breath Sounds: Yes Prolonged Expiratory Phase: No Unable to Speak Full Sentences: No Fatigue: No Leg Swelling: No Dilan's Sign Present: No Grunting Respirations: No Kussmaul Respirations: No Differential Diagnoses: Chest Wall Pain, Pneumonia, Pulmonary Embolism Review of Systems - Review Of Systems Constitutional: Reports: Malaise, Weakness Eyes: Reports: No symptoms Ears, Nose, Mouth, Throat: Reports: No symptoms Respiratory: Reports: Short of air Cardiac: Reports: No symptoms GI: Reports: No symptoms : Reports: No symptoms Musculoskeletal: Reports: No symptoms Skin: Reports: No symptoms Neurological: Reports: No symptoms Endocrine: Reports: No symptoms Hematologic/Lymphatic: Reports: No symptoms All Other Systems: Reviewed and Negative Past Medical History - Past Medical History Previously Healthy: Yes Endocrine: Reports: DM 2, Dyslipidemia Cardiovascular: Reports: [place] Respiratory: Reports: Pneumonia, Other (asbestosis) Hematological: Reports: None Gastrointestinal: Reports: GERD Genitourinary: Reports: None Neuro/Psych: Reports: Migraine Musculoskeletal: Reports: None Cancer: Reports: None Other Pertinent Past Medical History: asbestosis - Surgical History General 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 ) - Family History Family History: Reports: Unknown - Social History Smoking Status: Former smoker Hx Substance Use: No Alcohol Screening: Occasionally Physical Exam - Physical Exam Appearance: Well-appearing, No pain distress, Well-nourished Eyes: FERNANDO, EOMI, Conjunctiva clear ENT: Ears normal, Nose normal, Oropharynx normal Respiratory: Airway patent, Breath sounds clear, Breath sounds equal, Respirations nonlabored Cardiovascular: RRR, Pulses normal, No rub, No murmur GI/: Soft, Nontender, No masses, Bowel sounds normal, No Organomegaly Musculoskeletal: Normal strength, ROM intact, No edema, No calf tenderness Skin: Warm, Dry, Normal color Neurological: Sensation intact, Motor intact, Reflexes intact, Cranial nerves intact, Alert, Oriented Psychiatric: Affect appropriate, Mood appropriate Interpretation - Radiology Interpretation Radiology Interpretation By: Radiologist Radiology Results: Positive (panceratitis) Physician Notification - Case Discussed Physician Notified: pmd Time of Notification: 16:43 Critical Care Note - Critical Care Note Total Time (mins): 0 Course - Course Hematology/Chemistry: 12/03/16 14:30 12/03/16 14:30 Orders, Labs, Meds: Lab Review 12/03/16 12/03/16 12/03/16 14:30 14:30 14:30 WBC 8.41 RBC 4.41 L Hgb 14.2 Hct 39.2 L MCV 88.9 MCH 32.2 H MCHC 36.2 H RDW Coeff of [place] 12.1 Plt Count 240 Immature Gran % (Auto) 3.3 Neut % (Auto) 70.8 Lymph % (Auto) 15.3 [place] % (Auto) 9.4 Eos % (Auto) 0.8 Baso % (Auto) 0.4 Immature Gran # (Auto) 0.3 Neut # 6.0 Lymph # 1.3 Iron # 0.8 Eos # 0.1 Baso # 0.0 Sodium 138 Potassium 3.8 Chloride 106 Carbon Dioxide 21 L Anion Gap 14.8 BUN 25 H Creatinine 1.03 Estimated GFR (MDRD) 72.00 BUN/Creatinine Ratio 24.27 Glucose 124 H Calcium 8.6 Total Bilirubin 1.17 AST 23 ALT 27 Alkaline Phosphatase 52 L Total Creatine Kinase 111 Troponin I 6.6790 H* Total Protein 5.9 Albumin 3.2 L Globulin 2.7 Albumin/Globulin Ratio 1.19 Amylase 73 Lipase 184 H Orders Category Date Time Status EKG-(ED ONLY) Stat CARDIO 12/03/16 14:17 Completed EKG-(ED ONLY) Stat CARDIO 12/03/16 16:29 Ordered NPO REMINDER: IMAGING ONCE CARE 12/03/16 14:17 Active ED IV/MEDIPORT/POWERPORT .ONCE EMERGENCY 12/03/16 14:17 Active AMYLASE Stat LAB 12/03/16 14:30 Completed CBC W/ AUTO DIFF Stat LAB 12/03/16 14:30 Completed COMPREHENSIVE METABOLIC PANEL Stat LAB 12/03/16 14:30 Completed CREATINE KINASE Stat LAB 12/03/16 14:30 Completed LIPASE Stat LAB 12/03/16 14:30 Completed TROPONIN I Stat LAB 12/03/16 14:30 Completed 0.9 % Sodium Chloride [Saline Flush] MEDS 12/03/16 14:17 Active 1 syr IVF PRN PRN CT CHEST PE PROTOCOL Stat RADS 12/03/16 14:17 Completed Medications Generic Name Dose Route Start Last Admin Trade Name Freq PRN Reason Stop Dose Admin Sodium Chloride 1 syr 12/03/16 14:17 Saline Flush IVF PRN PRN To flush IV Vital Signs: Temp Pulse Resp BP Pulse Ox 12/03/16 13:48 97.5 F L 76 22 107/73 98 Departure - Departure Time of Disposition: 16:43 Disposition: TSF SHORT-TRM HOSP Discharge Problem: Elevation of cardiac enzymes Pancreatitis Qualifiers: Chronicity: chronic Pancreatitis type: unspecified pancreatitis type Qualified Code(s): K86.1 - Other chronic pancreatitis Instructions: Pancreatitis (ED) Condition: Good Pt referred to PMD for follow-up: Yes Allergies/Adverse Reactions: Allergies No Known Allergies Allergy (Verified 12/03/16 13:55) Home Medications: Ambulatory Orders Aspirin [Aspirin EC] 81 mg PO DAILYWM 05/07/13 Omeprazole [Prilosec] 20 mg PO QDAC 05/07/13 Pravastatin Sodium [Pravachol] 80 mg PO BEDTIME 05/07/13 Amlodipine Besylate 5 mg PO DAILY 07/04/14 Metformin HCl [Glucophage] 500 mg PO BIDWM #60 tablet 07/07/14 Insulin Detemir [Levemir] 10 unit SUBCUT BEDTIME 07/21/14
== END 2016-12-03 17:52 | disposition short-term general hospital (02) ==
LOC: ED 13:48
DX: K86.1 Other chronic pancreatitis (principal); R74.8 Abnormal levels of other serum enzymes; R06.02 Shortness of breath; E11.9 Type 2 diabetes mellitus without complications; E78.5 Hyperlipidemia, unspecified; R53.1 Weakness; I25.2 Old myocardial infarction; Z95.1 Presence of aortocoronary bypass graft; Z79.899 Other long term (current) drug therapy
CPT/HCPCS: 36415; 80053; 82150; 82550; 83690; 84484; 85025; 93005; 93010; 99285

== ENCOUNTER 2016-12-27 08:14 | Emergency (ER) ==
[2016-12-27 08:14] VITALS: BMI 26.9
[2016-12-27 08:27] VITALS: BP 115/73; TEMP 98.4
[2016-12-27 08:55] LABS: BASOPHILS % (AUTO) 0.4 % (0.0-3.0); EOSINOPHILS # (AUTO) 0.1 K/ul (0.0-0.7); EOSINOPHILS % (AUTO) 1.3 % (0.0-7.0); HEMATOCRIT 39.6 % (42.0-52.0); HEMOGLOBIN 14.1 g/dl (14.0-18.0); IMMATURE GRANULOCYTE % (AUTO) 0.3 % (0.0-5.0); LYMPHOCYTES % (AUTO) 10.2 (10.0-50.0); MEAN CORPUSCULAR HEMOGLOBIN 32.2 pg (27.0-31.0); MEAN CORPUSCULAR HGB CONC 35.6 (31.8-35.4); MEAN CORPUSCULAR VOLUME 90.4 fl (80.0-94.0); MONOCYTES # (AUTO) 0.8 K/uL (0.4-2.0); NEUTROPHILS # (AUTO) 7.7 K/ul (2.0-6.9); NEUTROPHILS % (AUTO) 79.8; PLATELET COUNT 248 10^3/uL (140-440); RED BLOOD COUNT 4.38 10^6/ul (4.70-6.10)
[2016-12-27 09:15] LABS: ALBUMIN 3.6 g/dL (3.4-5.0); ALBUMIN/GLOBULIN RATIO 1.33; ANION GAP 14.3; BILIRUBIN,TOTAL 0.58 mg/dL (0.00-1.20); BUN/CREATININE RATIO 14.42; CALCIUM 9.8 mg/dL (8.2-10.2); CREATININE 1.04 mg/dL (0.60-1.10); POTASSIUM 4.3 mmol/L (3.5-5.1); TOTAL PROTEIN 6.3 g/dL (5.8-8.1)
--- NOTE | 2016-12-27 09:37 | ED.PDOC ---
General ED Provider: Dr. SHEN MCCONNELL Chief Complaint: Diabetes Stated Complaint: thumbs left Time Seen by Physician: 08:15 (injury left thumb by a door) Mode of Arrival: Walk-In Information Source: Patient Exam Limitations: No limitations Primary Care Provider: GREGORIA THACKER Nursing and Triage Documentation Reviewed and Agree: Yes Musculoskeletal Complaint Exam - Hand/Wrist Complaint/Exam Location of Pain: Reports: Left (thumb injury blunt force 4 days ago) Mechanism of Injury: Reports: Trauma Onset/Duration: 4 days Symptoms Are: Still present Onset of Pain: Reports: Immediate Initial Severity: Moderate Current Severity: Moderate Character: Reports: Dull, Aching Alleviating: Reports: Rest Aggravating: Reports: None Associated Signs and Symptoms: Reports: Swelling, Redness, Bruising (see photos) . Denies: Fever, Weakness, Numbness, Tingling Hand/Wrist Findings: Present: Swelling, Ecchymosis, Subungal hematoma Tenderness: Absent: Radius, Ulna, Snuff box Differential Diagnoses: Abrasion, Closed Fracture, Subungal hematoma Review of Systems - Review Of Systems Constitutional: Reports: No symptoms Eyes: Reports: No symptoms Ears, Nose, Mouth, Throat: Reports: No symptoms Respiratory: Reports: No symptoms Cardiac: Reports: No symptoms GI: Reports: No symptoms : Reports: No symptoms Musculoskeletal: Reports: Other (left thumb brusing) Skin: Reports: No symptoms Neurological: Reports: No symptoms Endocrine: Reports: No symptoms Hematologic/Lymphatic: Reports: No symptoms All Other Systems: Reviewed and Negative Past Medical History - Past Medical History Previously Healthy: Yes Endocrine: Reports: DM 2, Dyslipidemia Cardiovascular: Reports: [place] Respiratory: Reports: Pneumonia, Other (asbestosis) Hematological: Reports: None Gastrointestinal: Reports: GERD Genitourinary: Reports: None Neuro/Psych: Reports: Migraine Musculoskeletal: Reports: None Cancer: Reports: None Other Pertinent Past Medical History: asbestosis - Surgical History General 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 ) - Family History Family History: Reports: Unknown - Social History Smoking Status: Former smoker Hx Substance Use: No Alcohol Screening: Occasionally - Immunizations Tetanus Shot up to Date: No Physical Exam - Physical Exam Appearance: Well-appearing, No pain distress, Well-nourished Eyes: FERNANDO, EOMI, Conjunctiva clear ENT: Ears normal, Nose normal, Oropharynx normal Respiratory: Airway patent, Breath sounds clear, Breath sounds equal, Respirations nonlabored Cardiovascular: RRR, Pulses normal, No rub, No murmur GI/: Soft, Nontender, No masses, Bowel sounds normal, No Organomegaly Musculoskeletal: Edema (brusing subungal hematoma) Skin: Warm, Dry, Normal color Neurological: Sensation intact, Motor intact, Reflexes intact, Cranial nerves intact, Alert, Oriented Psychiatric: Affect appropriate, Mood appropriate Critical Care Note - Critical Care Note Total Time (mins): 0 Course - Course Hematology/Chemistry: 12/27/16 08:45 12/27/16 08:45 Orders, Labs, Meds: Lab Review 12/27/16 12/27/16 08:45 08:45 WBC 9.70 RBC 4.38 L Hgb 14.1 Hct 39.6 L MCV 90.4 MCH 32.2 H MCHC 35.6 H RDW Coeff of [place] 12.8 Plt Count 248 Immature Gran % (Auto) 0.3 Neut % (Auto) 79.8 Lymph % (Auto) 10.2 [place] % (Auto) 8.0 Eos % (Auto) 1.3 Baso % (Auto) 0.4 Immature Gran # (Auto) 0.0 Neut # 7.7 H Lymph # 1.0 [place] # 0.8 Eos # 0.1 Baso # 0.0 Sodium 141 Potassium 4.3 Chloride 108 H Carbon Dioxide 23 Anion Gap 14.3 BUN 15 Creatinine 1.04 Estimated GFR (MDRD) 71.00 BUN/Creatinine Ratio 14.42 Glucose 64 L Calcium 9.8 Total Bilirubin 0.58 AST 18 ALT 13 Alkaline Phosphatase 69 Total Protein 6.3 Albumin 3.6 Globulin 2.7 Albumin/Globulin Ratio 1.33 Orders Category Date Time Status ED ACCUCHECK ASSESSMENT .ONCE EMERGENCY 12/27/16 08:51 Active CBC W/ AUTO DIFF Stat LAB 12/27/16 08:45 Completed COMPREHENSIVE METABOLIC PANEL Stat LAB 12/27/16 08:45 Completed Vital Signs: Temp Pulse Resp BP Pulse Ox 12/27/16 08:14 98.4 F 90 20 115/73 98 Departure - Departure Time of Disposition: 09:39 Disposition: HOME SELF-CARE Discharge Problem: Subungual hematoma Instructions: Subungual Hematoma (ED) Condition: Good Pt referred to PMD for follow-up: Yes Additional Instructions: Please call your Family Physician as soon as possible to schedule a follow-up appointment. Allergies/Adverse Reactions: Allergies No Known Allergies Allergy (Verified 12/03/16 13:55) Home Medications: Ambulatory Orders Omeprazole [Prilosec] 20 mg PO QDAC 05/07/13 Pravastatin Sodium [Pravachol] 80 mg PO BEDTIME 05/07/13 Metformin HCl [Glucophage] 500 mg PO BIDWM #60 tablet 07/07/14 Insulin Detemir [Levemir] 10 unit SUBCUT BEDTIME 07/21/14 Clopidogrel Bisulfate [Clopidogrel] 75 mg PO DAILY 12/27/16 Cyclobenzaprine HCl 10 mg PO PRN PRN 12/27/16 Insulin Aspart [Novolog Insulin] 10 unit SUBCUT DAILY 12/27/16 Isosorbide Mononitrate [Isosorbide Mononitrate ER] 60 mg PO BID 12/27/16 Lorazepam 1 mg PO DAILY 12/27/16 Ranolazine [Ranexa] 500 mg PO BID 12/27/16 Disposition Discussed With: Patient
--- NOTE | 2016-12-27 10:30 | ED.PDOC ---
General ED Provider: Dr. SHEN MCCONNELL Chief Complaint: Diabetes Stated Complaint: DISABETES BLOOD SUGAR UP AND DOWN Time Seen by Physician: 08:17 (SEEN WITH SHOSHANA) Mode of Arrival: Walk-In Information Source: Patient Exam Limitations: No limitations Primary Care Provider: GREGORIA THACKER Nursing and Triage Documentation Reviewed and Agree: Yes Endocrine Complaint Exam - Diabetic Complication Complaint/Exam Onset/Duration: THIS MORNING Symptoms Are: Still present Timing: Intermittent Initial Severity: Mild Current Severity: Mild Character: Alert Aggravating: Reports: None Alleviating: Reports: None Associated Signs and Symptoms: Denies: Decreased LOC, Polydipsia, Polyuria, Polyphagia, Weight loss, Abdominal pain, Nausea, Vomiting, Fever, Diaphoresis, Fruity breath Related History: Reports: Similar episode Cardiac Risk Factors: Reports: DM, Elevated lipids CVA Risk Factors: Reports: DM Serious Bacterial Infection Risk Factors: Reports: None Related Surgical History: Reports: None Acetone on Breath: No Dry Mucous Membranes: No Glascow Coma Scale (see protocol): 15 Meningeal Signs: Yes Focal Weakness: None Focal Sensory Loss: None Gait: Normal Nystagmus Present: No Gag Reflex Present: Yes Finger to Nose: Normal Romberg Test Positive: No Differential Diagnoses: Hyperosmolar State, Hypoglycemia, Hyperglycemia Review of Systems - Review Of Systems Constitutional: Reports: No symptoms Eyes: Reports: No symptoms Ears, Nose, Mouth, Throat: Reports: No symptoms Respiratory: Reports: No symptoms Cardiac: Reports: No symptoms GI: Reports: No symptoms : Reports: No symptoms Musculoskeletal: Reports: No symptoms Skin: Reports: No symptoms Neurological: Reports: No symptoms Endocrine: Reports: No symptoms Hematologic/Lymphatic: Reports: No symptoms All Other Systems: Reviewed and Negative Past Medical History - Past Medical History Previously Healthy: Yes Endocrine: Reports: DM 2, Dyslipidemia Cardiovascular: Reports: [place] Respiratory: Reports: Pneumonia, Other (asbestosis) Hematological: Reports: None Gastrointestinal: Reports: GERD Genitourinary: Reports: None Neuro/Psych: Reports: Migraine Musculoskeletal: Reports: None Cancer: Reports: None Other Pertinent Past Medical History: asbestosis - Surgical History General 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 ) - Family History Family History: Reports: Unknown - Social History Smoking Status: Former smoker Hx Substance Use: No Alcohol Screening: Occasionally - Immunizations Tetanus Shot up to Date: No Physical Exam - Physical Exam Appearance: Well-appearing, No pain distress, Well-nourished Eyes: FERNANDO, EOMI, Conjunctiva clear ENT: Ears normal, Nose normal, Oropharynx normal Respiratory: Airway patent, Breath sounds clear, Breath sounds equal, Respirations nonlabored Cardiovascular: RRR, Pulses normal, No rub, No murmur GI/: Soft, Nontender, No masses, Bowel sounds normal, No Organomegaly Musculoskeletal: Normal strength, ROM intact, No edema, No calf tenderness Skin: Warm, Dry, Normal color Neurological: Sensation intact, Motor intact, Reflexes intact, Cranial nerves intact, Alert, Oriented Psychiatric: Affect appropriate, Mood appropriate Re-Evaluation - Re-Evaluation Time of Re-Evaluation: 10:30 (KIANA BELLO AT BEDSIDE DISCUSSED DAIBETES ABD P[place]) Status: Improved Vital Signs Stable: Yes Pain Level: 0 Appearance: NAD Lungs: Clear Skin: Warm and Dry Neuro: Alert and Oriented X3 CV: RRR Critical Care Note - Critical Care Note Total Time (mins): 0 Course - Course Hematology/Chemistry: 12/27/16 08:45 12/27/16 08:45 Orders, Labs, Meds: Lab Review 12/27/16 12/27/16 08:45 08:45 WBC 9.70 RBC 4.38 L Hgb 14.1 Hct 39.6 L MCV 90.4 MCH 32.2 H MCHC 35.6 H RDW Coeff of [place] 12.8 Plt Count 248 Immature Gran % (Auto) 0.3 Neut % (Auto) 79.8 Lymph % (Auto) 10.2 [place] % (Auto) 8.0 Eos % (Auto) 1.3 Baso % (Auto) 0.4 Immature Gran # (Auto) 0.0 Neut # 7.7 H Lymph # 1.0 [place] # 0.8 Eos # 0.1 Baso # 0.0 Sodium 141 Potassium 4.3 Chloride 108 H Carbon Dioxide 23 Anion Gap 14.3 BUN 15 Creatinine 1.04 Estimated GFR (MDRD) 71.00 BUN/Creatinine Ratio 14.42 Glucose 64 L Calcium 9.8 Total Bilirubin 0.58 AST 18 ALT 13 Alkaline Phosphatase 69 Total Protein 6.3 Albumin 3.6 Globulin 2.7 Albumin/Globulin Ratio 1.33 Orders Category Date Time Status ED ACCUCHECK ASSESSMENT .ONCE EMERGENCY 12/27/16 08:51 Active CBC W/ AUTO DIFF Stat LAB 12/27/16 08:45 Completed COMPREHENSIVE METABOLIC PANEL Stat LAB 12/27/16 08:45 Completed Vital Signs: Temp Pulse Resp BP Pulse Ox 12/27/16 08:14 98.4 F 90 20 115/73 98 Departure - Departure Time of Disposition: 11:00 Disposition: HOME SELF-CARE Discharge Problem: Subungual hematoma Instructions: Subungual Hematoma (ED) Condition: Good Pt referred to PMD for follow-up: Yes Additional Instructions: Please call your Family Physician as soon as possible to schedule a follow-up appointment. Allergies/Adverse Reactions: Allergies No Known Allergies Allergy (Verified 12/03/16 13:55) Home Medications: Ambulatory Orders Omeprazole [Prilosec] 20 mg PO QDAC 05/07/13 Pravastatin Sodium [Pravachol] 80 mg PO BEDTIME 05/07/13 Metformin HCl [Glucophage] 500 mg PO BIDWM #60 tablet 07/07/14 Insulin Detemir [Levemir] 10 unit SUBCUT BEDTIME 07/21/14 Clopidogrel Bisulfate [Clopidogrel] 75 mg PO DAILY 12/27/16 Cyclobenzaprine HCl 10 mg PO PRN PRN 12/27/16 Insulin Aspart [Novolog Insulin] 10 unit SUBCUT DAILY 12/27/16 Isosorbide Mononitrate [Isosorbide Mononitrate ER] 60 mg PO BID 12/27/16 Lorazepam 1 mg PO DAILY 12/27/16 Ranolazine [Ranexa] 500 mg PO BID 12/27/16
== END 2016-12-27 10:53 | disposition home or self-care (01) ==
LOC: ED 08:14
DX: E11.9 Type 2 diabetes mellitus without complications (principal); E78.5 Hyperlipidemia, unspecified; I25.2 Old myocardial infarction; Z95.1 Presence of aortocoronary bypass graft; Z79.899 Other long term (current) drug therapy; Z79.4 Long term (current) use of insulin
CPT/HCPCS: 36415; 80053; 82962; 85025; 99283

== ENCOUNTER 2017-01-12 06:55 | Outpatient (RCR) ==
[2017-02-09 10:08] VITALS: BP 118/54
== END 2017-02-10 ==
LOC: CAR.REHAB 06:55
PROVIDERS: ATTEND Internal Medicine
DX: Z95.1 Presence of aortocoronary bypass graft (principal); E78.5 Hyperlipidemia, unspecified
CPT/HCPCS: 93798

== ENCOUNTER 2017-02-11 07:02 | Outpatient (RCR) ==
[2017-03-09 10:03] VITALS: BP 116/54
== END 2017-03-13 ==
LOC: CAR.REHAB 07:02
PROVIDERS: ATTEND Internal Medicine
DX: Z95.1 Presence of aortocoronary bypass graft (principal); E78.5 Hyperlipidemia, unspecified
CPT/HCPCS: 93798

== ENCOUNTER 2017-03-15 06:51 | Outpatient (RCR) | payer OTHER ==
[2017-04-12 10:01] VITALS: BP 122/54
== END 2017-04-13 ==
LOC: CAR.REHAB 06:51
PROVIDERS: ATTEND Internal Medicine
DX: Z95.1 Presence of aortocoronary bypass graft (principal); E78.5 Hyperlipidemia, unspecified
CPT/HCPCS: 93798

== ENCOUNTER 2017-04-14 07:46 | Outpatient (RCR) | payer OTHER ==
[2017-05-10 10:01] VITALS: BP 128/58
== END 2017-05-11 ==
LOC: CAR.REHAB 07:46
PROVIDERS: ATTEND Internal Medicine
DX: Z95.1 Presence of aortocoronary bypass graft (principal); E78.5 Hyperlipidemia, unspecified
CPT/HCPCS: 93798

== ENCOUNTER 2017-05-12 08:28 | Outpatient (RCR) | payer OTHER ==
[2017-05-16 12:47] VITALS: BP 118/54
== END 2017-05-16 12:30 | disposition home or self-care (01) ==
LOC: CAR.REHAB 08:28
PROVIDERS: ATTEND Internal Medicine
DX: Z95.1 Presence of aortocoronary bypass graft (principal); E78.5 Hyperlipidemia, unspecified
CPT/HCPCS: 93798

== ENCOUNTER 2017-07-16 13:07 | Emergency (ER) ==
[2017-07-16 13:11] VITALS: BP 148/68; TEMP 98.4; BMI 26.2
[2017-07-16] MEDS ORDERED: DECADRON 4 MG/ML SDV IM STA (13:22)
[2017-07-16] MEDS ORDERED: LIDOCAINE HCL 1% SDV IM STA (13:22)
[2017-07-16] MEDS ORDERED: ROCEPHIN IM STA (13:22)
--- NOTE | 2017-07-16 13:26 | ED.PDOC ---
General ED Provider: Dr. SHEN MCCONNELL Chief Complaint: Extremity Pain/Injury Stated Complaint: rash right forearm Time Seen by Physician: 13:10 Mode of Arrival: Walk-In Information Source: Patient Exam Limitations: No limitations Primary Care Provider: GREGORIA THACKER Nursing and Triage Documentation Reviewed and Agree: Yes Reviewed sepsis parameters & appropriate labs ordered?: No System Inflammatory Response Syndrome: Not Applicable Sepsis Protocol: For patient's 13 years and over: Temp is 96.8 and below OR 101 and greater Pulse >90 BPM Resp >20/minute Acutely Altered Mental Status Are patient's symptoms suggestive of a new infection, such as: -Pneumonia -Skin, Soft Tissue -Endocarditis -UTI -Bone, Joint Infection -Implantable Device -Acute Abdominal Infection -Wound Infection -Meningitis -Blood Stream Catheter Infection -Unknown System Inflammatory Response Syndrome: Not Applicable Skin Complaint Exam - Skin/Soft Tissue Complaint/Exam Onset/Duration: 1 day rash as noted in the photo Symptoms Are: Still present Timing: Constant Initial Severity: Mild Current Severity: Mild Character: Reports: Redness, Swelling. Denies: Raised, Painful Aggravating: Reports: None Alleviating: Reports: None Associated Signs and Symptoms: Denies: Fever, Chills, Itching, Drainage, Bruising, Tenderness, Red streaks, Joint swelling Related Surgical History: Reports: None Recent Exposure to Others w/Similar Symptoms: No Skin Findings: Present: Erythema Joint Tenderness Present: No Differential Diagnoses: Cellulitis Review of Systems - Review Of Systems Constitutional: Reports: No symptoms Eyes: Reports: No symptoms Ears, Nose, Mouth, Throat: Reports: No symptoms Respiratory: Reports: No symptoms Cardiac: Reports: No symptoms GI: Reports: No symptoms : Reports: No symptoms Musculoskeletal: Reports: No symptoms Skin: Reports: Rash (see photos) Neurological: Reports: No symptoms Endocrine: Reports: No symptoms Hematologic/Lymphatic: Reports: No symptoms All Other Systems: Reviewed and Negative Past Medical History - Past Medical History Previously Healthy: Yes Endocrine: Reports: DM 2, Dyslipidemia Cardiovascular: Reports: [place] Respiratory: Reports: Pneumonia, Other (asbestosis) Hematological: Reports: None Gastrointestinal: Reports: GERD Genitourinary: Reports: None Neuro/Psych: Reports: Migraine Musculoskeletal: Reports: None Cancer: Reports: None Other Pertinent Past Medical History: asbestosis - Surgical History General 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 ) - Family History Family History: Reports: Unknown - Social History Smoking Status: Former smoker Hx Substance Use: No Alcohol Screening: Occasionally Physical Exam - Physical Exam Appearance: Well-appearing, No pain distress, Well-nourished Eyes: FERNANDO, EOMI, Conjunctiva clear ENT: Ears normal, Nose normal, Oropharynx normal Respiratory: Airway patent, Breath sounds clear, Breath sounds equal, Respirations nonlabored Cardiovascular: RRR, Pulses normal, No rub, No murmur GI/: Soft, Nontender, No masses, Bowel sounds normal, No Organomegaly Musculoskeletal: Normal strength, ROM intact, No edema, No calf tenderness Skin: Warm, Dry (rash 10 cm by 7 cm see photos ), Normal color Neurological: Sensation intact, Motor intact, Reflexes intact, Cranial nerves intact, Alert, Oriented Psychiatric: Affect appropriate, Mood appropriate Critical Care Note - Critical Care Note Total Time (mins): 0 Course - Course Orders, Labs, Meds: Orders Category Date Time Status Ceftriaxone Sodium [Rocephin] MEDS 07/16/17 13:22 Stat 1 gm IM ONCE STA Dexamethasone 4 mg/ml Inj [Decadron 4 mg/ml Sdv] MEDS 07/16/17 13:22 Stat 4 mg IM ONCE STA Lidocaine HCl/Pf [Lidocaine HCl 1% Sdv] MEDS 07/16/17 13:22 Stat 2.1 ml IM ONCE STA Medications Discontinued Medications Generic Name Dose Route Start Last Admin Trade Name [place] PRN Reason Stop Dose Admin Ceftriaxone Sodium 1 gm 07/16/17 13:22 Rocephin IM 07/16/17 13:23 ONCE STA Dexamethasone Sodium Phosphate 4 mg 07/16/17 13:22 Decadron 4 Mg/Ml Sdv IM 07/16/17 13:23 ONCE STA Lidocaine HCl 2.1 ml 07/16/17 13:22 Lidocaine Hcl 1% Sdv IM 07/16/17 13:23 ONCE STA Vital Signs: Temp Pulse Resp BP Pulse Ox 07/16/17 13:08 98.4 F 69 20 148/68 H 98 Departure - Departure Time of Disposition: 13:26 Disposition: HOME SELF-CARE Discharge Problem: Cellulitis Qualifiers: Site of cellulitis: extremity Site of cellulitis of extremity: upper extremity Laterality: right Qualified Code(s): L03.113 - Cellulitis of right upper limb Instructions: Cellulitis (ED) Condition: Good Pt referred to PMD for follow-up: Yes IPMP verified?: No Additional Instructions: Please call your Family Physician as soon as possible to schedule a follow-up appointment. you must see your SOON POSSIBLE SHOW UP FOR DAILY SHOTS Allergies/Adverse Reactions: Allergies No Known Allergies Allergy (Verified 07/16/17 13:13) Home Medications: Ambulatory Orders Omeprazole [Prilosec] 20 mg PO QDAC 05/07/13 Pravastatin Sodium [Pravachol] 80 mg PO BEDTIME 05/07/13 Metformin HCl [Glucophage] 500 mg PO BIDWM #60 tablet 07/07/14 Insulin Detemir [Levemir] 10 unit SUBCUT BEDTIME 07/21/14 Clopidogrel Bisulfate [Clopidogrel] 75 mg PO DAILY 12/27/16 Cyclobenzaprine HCl 10 mg PO PRN PRN 12/27/16 Isosorbide Mononitrate [Isosorbide Mononitrate ER] 60 mg PO BID 12/27/16 Lorazepam 1 mg PO DAILY 12/27/16 Ranolazine [Ranexa] 500 mg PO BID 12/27/16 Aspirin [Aspirin EC] 81 mg PO DAILY 07/16/17 Baclofen 10 mg PO BEDTIME 07/16/17 Disposition Discussed With: Patient
== END 2017-07-16 14:15 | disposition home or self-care (01) ==
LOC: ED 13:07
DX: L03.113 Cellulitis of right upper limb (principal); R21 Rash and other nonspecific skin eruption
CPT/HCPCS: 96372; 99282

== ENCOUNTER 2017-07-17 13:56 | Outpatient (CLI) ==
[2017-07-16 13:11] VITALS: BMI 26.2
[2017-07-17] MEDS ORDERED: ROCEPHIN ONE (14:43)
[2017-07-17] MEDS ORDERED: LIDOCAINE HCL 1% SDV ONE (14:44)
[2017-07-17] MEDS ORDERED: ROCEPHIN IM STA (14:50)
[2017-07-17] MEDS ORDERED: LIDOCAINE HCL 1% SDV IM STA (14:50)
[2017-07-17 15:19] VITALS: BP 137/70; TEMP 97.8
== END 2017-07-17 13:57 | disposition home or self-care (01) ==
LOC: OPMED 13:56
PROVIDERS: ATTEND Internal Medicine
DX: L03.90 Cellulitis, unspecified (principal)
CPT/HCPCS: 96372

== ENCOUNTER 2017-07-18 10:54 | Outpatient (CLI) ==
[2017-07-18 11:17] VITALS: BP 135/66; TEMP 97.8
[2017-07-18] MEDS ORDERED: LIDOCAINE HCL 1% SDV IM STA (11:20)
[2017-07-18] MEDS ORDERED: ROCEPHIN IM STA (11:20)
== END 2017-07-18 11:40 | disposition home or self-care (01) ==
LOC: OPMED 10:54
PROVIDERS: ATTEND Internal Medicine
DX: L03.90 Cellulitis, unspecified (principal)

== ENCOUNTER 2017-08-28 21:22 | Emergency (ER) ==
[2017-08-28] MEDS ORDERED: BENADRYL IM STA (21:26)
[2017-08-28] MEDS ORDERED: DECADRON 4 MG/ML SDV IM STA (21:26)
--- NOTE | 2017-08-28 21:29 | ED.PDOC ---
General ED Provider: Dr. ABRAHAN VEE-ER Chief Complaint: Rash Stated Complaint: chris brown Time Seen by Physician: 21:27 Mode of Arrival: Walk-In Information Source: Patient Exam Limitations: No limitations Primary Care Provider: GREGORIA THACKER Nursing and Triage Documentation Reviewed and Agree: Yes Reviewed sepsis parameters & appropriate labs ordered?: Yes System Inflammatory Response Syndrome: Not Applicable Sepsis Protocol: For patient's 13 years and over: Temp is 96.8 and below OR 101 and greater Pulse >90 BPM Resp >20/minute Acutely Altered Mental Status Are patient's symptoms suggestive of a new infection, such as: -Pneumonia -Skin, Soft Tissue -Endocarditis -UTI -Bone, Joint Infection -Implantable Device -Acute Abdominal Infection -Wound Infection -Meningitis -Blood Stream Catheter Infection -Unknown Skin Complaint Exam - Skin Rash/Itching Complaint/Exam Onset/Duration: 2 days Symptoms Are: Still present Initial Severity: Mild Current Severity: Moderate Location: axilla and abdomen Potential Exposures: Reports: Unknown Aggravating: Reports: None Alleviating: Reports: None Associated Signs and Symptoms: Denies: Difficulty breathing, Fever, Chills Skin Findings: Present: Urticaria Differential Diagnoses: Allergic Reaction, Urticaria, Other Review of Systems - Review Of Systems Constitutional: Reports: No symptoms Eyes: Reports: No symptoms Ears, Nose, Mouth, Throat: Reports: No symptoms Respiratory: Reports: No symptoms Cardiac: Reports: No symptoms GI: Reports: No symptoms : Reports: No symptoms Musculoskeletal: Reports: No symptoms Skin: Reports: Rash Neurological: Reports: No symptoms Endocrine: Reports: No symptoms Hematologic/Lymphatic: Reports: No symptoms All Other Systems: Reviewed and Negative Past Medical History - Past Medical History Previously Healthy: Yes Endocrine: Reports: DM 2, Dyslipidemia Cardiovascular: Reports: [place] Respiratory: Reports: Pneumonia, Other (asbestosis) Hematological: Reports: None Gastrointestinal: Reports: GERD Genitourinary: Reports: None Neuro/Psych: Reports: Migraine Musculoskeletal: Reports: None Cancer: Reports: None Other Pertinent Past Medical History: asbestosis - Surgical History General 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 ) - Family History Family History: Reports: Unknown - Social History Smoking Status: Former smoker Hx Substance Use: No Alcohol Screening: Occasionally Physical Exam - Physical Exam Appearance: Well-appearing, No pain distress, Well-nourished Eyes: FERNANDO ENT: Ears normal, Nose normal, Oropharynx normal Neck: Supple Respiratory: Airway patent Cardiovascular: RRR, Pulses normal, No rub, No murmur GI/: Soft, Nontender, No masses, Bowel sounds normal, No Organomegaly Musculoskeletal: Normal strength, ROM intact, No edema, No calf tenderness Skin: Warm, Dry, Normal color Neurological: Sensation intact Psychiatric: Affect appropriate, Mood appropriate, Anxious Critical Care Note - Critical Care Note Total Time (mins): 0 Course - Course Orders, Labs, Meds: Orders Category Date Time Status Dexamethasone 4 mg/ml Inj [Decadron 4 mg/ml Sdv] MEDS 08/28/17 21:26 Discontinued 8 mg IM ONCE STA Diphenhydramine Inj [Benadryl] MEDS 08/28/17 21:26 Discontinued 50 mg IM ONCE STA Medications Discontinued Medications Generic Name Dose Route Start Last Admin Trade Name Freq PRN Reason Stop Dose Admin Dexamethasone Sodium Phosphate 8 mg 08/28/17 21:26 08/28/17 21:38 Decadron 4 Mg/Ml Sdv IM 08/28/17 21:27 8 mg ONCE STA Administration Diphenhydramine HCl 50 mg 08/28/17 21:26 08/28/17 21:39 Benadryl IM 08/28/17 21:27 50 mg ONCE STA Administration Vital Signs: Temp Pulse Resp BP Pulse Ox 08/28/17 21:22 98.8 F 66 24 143/75 H 98 Departure - Departure Time of Disposition: 21:29 Disposition: HOME SELF-CARE Discharge Problem: Urticaria Instructions: Urticaria (ED) Condition: Pt referred to PMD for follow-up: Yes IPMP verified?: No Additional Instructions: medrol dose pack--zyrtec 10mg #30--f/u with dr thacker this week--monitor bs while on steroids Allergies/Adverse Reactions: Allergies No Known Allergies Allergy (Verified 08/28/17 21:28) Home Medications: Ambulatory Orders Omeprazole [Prilosec] 20 mg PO QDAC 05/07/13 Pravastatin Sodium [Pravachol] 80 mg PO BEDTIME 05/07/13 Metformin HCl [Glucophage] 500 mg PO BIDWM #60 tablet 07/07/14 Insulin Detemir [Levemir] 10 unit SUBCUT BEDTIME 07/21/14 Clopidogrel Bisulfate [Clopidogrel] 75 mg PO DAILY 12/27/16 Cyclobenzaprine HCl 10 mg PO PRN PRN 12/27/16 Isosorbide Mononitrate [Isosorbide Mononitrate ER] 60 mg PO BID 12/27/16 Lorazepam 1 mg PO DAILY 12/27/16 Ranolazine [Ranexa] 500 mg PO BID 12/27/16 Aspirin [Aspirin EC] 81 mg PO DAILY 07/16/17 Baclofen 10 mg PO BEDTIME 07/16/17 Disposition Discussed With: Patient
[2017-08-28 21:31] VITALS: BP 143/75; TEMP 98.8; BMI 24.3
== END 2017-08-28 21:55 | disposition home or self-care (01) ==
LOC: ED 21:22
DX: L50.9 Urticaria, unspecified (principal)
CPT/HCPCS: 96372; 99282

== ENCOUNTER 2017-11-29 03:20 | Emergency (ER) | payer OTHER ==
[2017-11-29 03:46] VITALS: BP 180/81; TEMP 97.1; BMI 25.9
[2017-11-29] MEDS ORDERED: NITROSTAT SL STA (03:52)
[2017-11-29] MEDS ORDERED: MORPHINE 2 MG/ML SYRINGE IVP STA (03:52)
--- NOTE | 2017-11-29 03:52 | ED.PDOC ---
General ED Provider: Dr. ABRAHAN VEE-ER Chief Complaint: Chest Pain Stated Complaint: my chest is hurting Time Seen by Physician: 03:51 Mode of Arrival: Walk-In Information Source: Patient Exam Limitations: No limitations Primary Care Provider: GREGORIA THACKER Nursing and Triage Documentation Reviewed and Agree: Yes Does patient meet sepsis criteria?: No System Inflammatory Response Syndrome: Not Applicable Sepsis Protocol: For patient's 13 years and over: Temp is 96.8 and below OR 101 and greater Pulse >90 BPM Resp >20/minute Acutely Altered Mental Status Are patient's symptoms suggestive of a new infection, such as: -Pneumonia -Skin, Soft Tissue -Endocarditis -UTI -Bone, Joint Infection -Implantable Device -Acute Abdominal Infection -Wound Infection -Meningitis -Blood Stream Catheter Infection -Unknown Cardiovascular Complaint Exam - Chest Pain Complaint/Exam Onset: Gradual Duration: several hours Symptoms Are: Still present Initial Severity: Mild Current Severity: Moderate Location: Reports: Discrete Character: Reports: Dull Aggravating: Reports: None Associated Signs and Symptoms: Reports: Hemoptysis History of Healthcare-Acquired Pneumonia: Reports: No AMI/ACS Risk Factors: Reports: None TAD Risk Factors: Reports: None Prior Care for this Complaint: No Recent Stress Test: No Recent Echo/LV Function: No JVD Present: No Subcutaneous Emphysema Present: No Reproducible Chest Wall Pain: Yes Bilateral Pulses Present: Yes Review of Systems - Review Of Systems Constitutional: Reports: No symptoms Eyes: Reports: No symptoms Ears, Nose, Mouth, Throat: Reports: No symptoms Respiratory: Reports: No symptoms Cardiac: Reports: Chest pain GI: Reports: No symptoms : Reports: No symptoms Musculoskeletal: Reports: No symptoms Skin: Reports: No symptoms Neurological: Reports: No symptoms Endocrine: Reports: No symptoms Hematologic/Lymphatic: Reports: No symptoms All Other Systems: Reviewed and Negative Past Medical History - Past Medical History Previously Healthy: Yes Endocrine: Reports: DM 2, Dyslipidemia Cardiovascular: Reports: MA Respiratory: Reports: Pneumonia, Other (asbestosis) Hematological: Reports: None Gastrointestinal: Reports: GERD Genitourinary: Reports: None Neuro/Psych: Reports: Migraine Musculoskeletal: Reports: None Cancer: Reports: None Other Pertinent Past Medical History: asbestosis - Surgical History General 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 ) - Family History Family History: Reports: Unknown - Social History Smoking Status: Former smoker Hx Substance Use: No Alcohol Screening: None - Immunizations Tetanus Shot up to Date: (UNKNOWN) Physical Exam - Physical Exam Appearance: Well-appearing, No pain distress, Well-nourished Eyes: FERNANDO, EOMI, Conjunctiva clear ENT: Ears normal, Nose normal, Oropharynx normal Neck: Supple Respiratory: Airway patent, Breath sounds clear, Breath sounds equal, Respirations nonlabored Cardiovascular: RRR, Pulses normal, No rub, No murmur GI/: Soft, Nontender, No masses, Bowel sounds normal, No Organomegaly Musculoskeletal: Normal strength, ROM intact, No edema, No calf tenderness Skin: Warm, Dry, Normal color Neurological: Sensation intact, Motor intact, Reflexes intact, Cranial nerves intact, Alert, Oriented Psychiatric: Affect appropriate, Mood appropriate, Anxious Physician Notification - Case Discussed Physician Notified: dr caro Time of Notification: 03:59 Critical Care Note - Critical Care Note Total Time (mins): 0 Course - Course Orders, Labs, Meds: Orders Category Date Time Status CBC W/ AUTO DIFF Stat LAB 11/29/17 03:57 Ordered COMPREHENSIVE METABOLIC PANEL Stat LAB 11/29/17 03:57 Ordered CREATINE KINASE Stat LAB 11/29/17 03:57 Ordered TROPONIN I Stat LAB 11/29/17 03:57 Ordered Aspirin [Aspirin Chewable] MEDS 11/29/17 03:53 Discontinued 324 mg PO ONCE STA Morphine Sulfate [Morphine 2 mg/ml Syringe] MEDS 11/29/17 03:52 Discontinued 2 mg IVP ONCE STA Nitroglycerin [Nitrostat] MEDS 11/29/17 03:52 Discontinued 0.4 mg SL ONCE STA Ondansetron HCl/Pf [Zofran 4 mg/2 ml] MEDS 11/29/17 03:53 Discontinued 4 mg IVP ONCE STA CXR [CHEST, 1V AP ONLY] Stat RADS 11/29/17 03:58 Ordered Medications Discontinued Medications Generic Name Dose Route Start Last Admin Trade Name Freq PRN Reason Stop Dose Admin Aspirin 324 mg 11/29/17 03:53 Aspirin Chewable PO 11/29/17 03:54 ONCE STA Morphine Sulfate 2 mg 11/29/17 03:52 Morphine 2 Mg/Ml Syringe IVP 11/29/17 03:53 ONCE STA Nitroglycerin 0.4 mg 11/29/17 03:52 Nitrostat SL 11/29/17 03:53 ONCE STA Ondansetron HCl 4 mg 11/29/17 03:53 Zofran 4 Mg/2 Ml IVP 11/29/17 03:54 ONCE STA Vital Signs: Temp Pulse Resp BP Pulse Ox 11/29/17 03:21 97.1 F L 71 32 H 180/81 H 99 BRENDA Risk Score BRENDA Risk Score: Risk Score Odds of by 30D 0 0.1 (0.1-0.2) 1 0.3 (0.2-0.3) 2 0.4 (0.3-0.5) 3 0.7 (0.6-0.9) 4 1.2 (1.0-1.5) 5 2.2 (1.9-2.6) 6 3.0 (2.5-3.6) 7 4.8 (3.8-6.1) Departure - Departure Time of Disposition: 03:59 Disposition: TSF SHORT-TRM HOSP Discharge Problem: Chest pain Instructions: Chest Pain (ED) Condition: Good Pt referred to PMD for follow-up: Yes IPMP verified?: No Allergies/Adverse Reactions: Allergies cetirizine [From [facility]] Adverse Reaction (Verified 11/29/17 03:37) Home Medications: Ambulatory Orders Omeprazole [Prilosec] 20 mg PO QDAC 05/07/13 Metformin HCl [Glucophage] 500 mg PO BIDWM #60 tablet 07/07/14 Insulin Detemir [Levemir] 10 unit SUBCUT BEDTIME 07/21/14 Clopidogrel Bisulfate [Clopidogrel] 75 mg PO DAILY 12/27/16 Isosorbide Mononitrate [Isosorbide Mononitrate ER] 120 mg PO DAILY 12/27/16 Lorazepam 1 mg PO DAILY 12/27/16 Ranolazine [Ranexa] 500 mg PO BID 12/27/16 Aspirin [Aspirin EC] 81 mg PO DAILY 07/16/17 Simvastatin 40 mg PO DAILY 11/29/17 Transfer Form Completed: Yes Disposition Discussed With: Patient
[2017-11-29] MEDS ORDERED: ZOFRAN 4 MG/2 ML IVP STA (03:53)
[2017-11-29] MEDS ORDERED: ASPIRIN CHEWABLE PO STA (03:53)
--- NOTE | 2017-11-29 07:13 | DI ---
Exam: Single view of the chest. Comparison: CT PE protocol performed 12/03/2016. Reason for exam: Chest pain. FINDINGS: No pneumothorax, pleural effusion, or focal consolidation. Operative changes are seen aft er midline sternotomy. The imaged osseous structures appear grossly unremarkable. Impression: No acute cardiopulmonary process.
== END 2017-11-29 04:37 | disposition short-term general hospital (02) ==
LOC: ED 03:20
DX: R07.9 Chest pain, unspecified (principal); E11.9 Type 2 diabetes mellitus without complications; E78.5 Hyperlipidemia, unspecified; I25.2 Old myocardial infarction; Z95.1 Presence of aortocoronary bypass graft; Z79.899 Other long term (current) drug therapy
CPT/HCPCS: 36415; 80053; 82550; 84484; 85025; 96375; 99285

== ENCOUNTER 2017-12-28 10:01 | Outpatient (POV) | payer OTHER | END 2017-12-28 17:00 | LOC: OUTPT 10:01 | PROVIDERS: ATTEND Otolaryngology | DX: H90.5 Unspecified sensorineural hearing loss (principal) | CPT/HCPCS: 92553; 92567 ==

== ENCOUNTER 2018-04-04 18:43 | Outpatient (CLI) | payer OTHER | END 2018-04-04 18:44 | disposition home or self-care (01) | LOC: AMBL 18:43 | PROVIDERS: ATTEND Emergency Medicine | DX: R40.20 Unspecified coma (principal); R11.10 Vomiting, unspecified; R32 Unspecified urinary incontinence; R06.3 Periodic breathing; R40.2431 Glasgow coma scale score 3-8, in the field [EMT or ambulance] ==